=== PATIENT | female | born 1945 | race Caucasian/White ===

== ENCOUNTER 2018-11-29 04:27 | Inpatient (IN) ==
--- NOTE | 2018-11-29 05:14 | PROVIDER DOCUMENTATION ---
HPI-General Adult - General Chief Complaint: Fall Stated Complaint: fall Time Seen by Provider: 11/29/18 04:41 Source: patient (Patient is a) Allergies/Adverse Reactions: Patient Allergies Allergy/AdvReac Type Severity Reaction Status Date / Time hydrocodone Allergy Severe IN Verified 11/04/18 15:40 EXCESS>CONFUSION AND SLEEPINESS ofloxacin [From Floxin] Allergy Severe ANAPHYLAXIS Verified 11/04/18 15:40 niacin Allergy Intermediate HIVES Verified 11/04/18 15:40 caffeine Allergy Unknown Unknown Verified 11/04/18 15:40 cefixime [From Suprax] Allergy Unknown Unknown Verified 11/04/18 15:40 Ephedrine Analogues Allergy Unknown HEART Verified 11/04/18 15:40 RACING garlic Allergy Unknown NAUSEA/VOMI Verified 11/04/18 15:40 TING metoclopramide HCl * Allergy Unknown HALLUCINATIONS;"EVERYTHING'S Verified 11/04/18 15:40 [From Reglan] CRAWLING" prednisone Allergy Unknown Unknown Verified 11/04/18 15:40 promethazine HCl * Allergy Unknown HALLUCINATI Verified 11/04/18 15:40 [From Phenergan] ONS lactase [From Dairy Aid] Allergy Unknown Verified 11/04/18 15:40 methocarbamol [From Robaxin] Allergy VOMITING Verified 11/04/18 15:40 tramadol HCl * [From Ultram] AdvReac Intermediate DIZZINESS Verified 11/04/18 15:40 IF TAKING TOO MUCH Home Medications: Home Medication List Medication Instructions Recorded Confirmed Last Taken Type Fluoxetine HCl [Prozac] 40 mg PO DAILY 05/12/14 06/06/18 12/15/17 08:00 History Atorvastatin Calcium [Lipitor] 40 mg PO DAILY 12/15/17 06/06/18 12/14/17 09:00 History Estradiol 2 mg PO DAILY 12/15/17 06/06/18 12/15/17 08:00 History Glipizide [Glucotrol] 5 mg PO BID 12/15/17 06/06/18 12/14/17 21:00 History Melatonin 10 mg PO QHS 12/15/17 06/06/18 12/14/17 21:00 History Potassium Chloride 10 meq PO DAILY PRN 12/15/17 06/06/18 12/15/17 08:00 History Amoxicillin 500 mg PO BID #14 cap 12/17/17 06/06/18 Unknown Rx Levothyroxine [Synthroid] 25 microgm PO DAILY #30 tab 12/17/17 06/06/18 Unknown Rx Acyclovir 1 tab PO BID 06/06/18 06/06/18 Unknown History Alprazolam [Xanax] 1 tab PO QHS 06/06/18 06/06/18 Unknown History Hydrochlorothiazide 12.5 mg PO DAILY PRN 06/06/18 06/06/18 Unknown History Review of Systems - Adult - REVIEW OF SYSTEMS - ADULT Constitutional: reports: see HPI. denies: chills, fever Eyes: reports: no symptoms reported Ears, Nose, Mouth & Throat: reports: no symptoms reported Cardiovascular: reports: no symptoms reported Respiratory: reports: no symptoms reported Past History - Adult - PAST MEDICAL HISTORY-ADULT Review of Records: reports: Old Records Reviewed, Nursing Assessment Review, Medications Reviewed, Social history reviewed & non-contributory. Major Childhood Illnesses: reports: denies history Cardiovascular: reports: hyperlipidemia, other (Histroy of Vent Tachycarida. Stable for years.) Respiratory: reports: COPD (Quit smoking many years ago .) Gastrointestinal: reports: denies history Obstetrical/Gynecological: reports: denies history Genitourinary: reports: denies history Musculoskeletal: reports: arthritis, chronic pain, orthopedic injury Neurological: reports: CVA, stroke deficits, other (Mienier's disease) Psychiatric: reports: anxiety, depression Endocrine/Immune: reports: thyroid disorder Other Conditions: reports: denies history - PRIOR SURGERIES/PROCEDURES Surgical/Procedure History: reports: recent surgery (oral surgery), hysterectomy , tonsillectomy, orthopedic (extremity), other - IMMUNIZATION STATUS Childhood Immunizations: See Nurse Assessment Flu Vaccine: See Nurse Assessment - FAMILY HISTORY Family History: reviewed, not pertinent Physical Exam-General - CONSTITUTIONAL General Appearance: alert, other (pale appearing) - EYES Eyes: other (clear) - HEAD, EARS, NOSE, MOUTH & THROAT HENMT: moist mucous membranes - NECK Neck: supple - RESPIRATORY Respiratory: lungs clear - CARDIOVASCULAR Cardiovascular: regular rate, rhythm - GASTROINTESTINAL (ABDOMEN) Abdominal Exam: non tender, soft, other (heme positive brown stool , no active bleeding on rectal exam with RN present) - LYMPHATIC Lymphatic: no adenopathy - MUSCULOSKELETAL Back Exam: normal inspection Extremity: normal range of motion, non-tender - SKIN Integumentary: other (pale) - NEUROLOGIC Neurologic: grossly normal - PSYCHIATRIC Psych/Mental Status: anxious Progress - PLAN OF CARE/RESULTS Progress/Plan/Lab Results: Vital Signs - 8 hr 11/29/18 04:34 Pulse Rate 69 Respiratory Rate 20 Blood Pressure 155/64 O2 Sat by Pulse Oximetry 98 Orders Category Date Time Status CT HEAD/C-SPINE W/O CONTRAST [CT] Stat Exams 11/29/18 04:44 Ordered CBC WITH ELECTRONIC DIFF [HEME] Stat Lab 11/29/18 04:45 Ordered CMP [COMPREHENSIVE METABOLIC PANEL] [CHEM] Stat Lab 11/29/18 04:57 Uncollected OCCULT BLOOD SCREEN STOOL PL Stat Lab 11/29/18 04:45 Uncollected PT [PROTIME WITH INR] [COAG] Stat Lab 11/29/18 04:56 Uncollected Result Diagrams: 11/29/18 05:00 11/29/18 05:00 - CONSULTS/PCP/HOSPITALIST Notification #1 *Consult/PCP/Hospitalist*: Dr. Cody, hospitalist at [facility] Time Discussed: 06:30 Reason/Comments: admit to Dr. Perez Consult Disposition: Admit #2 Consult: Dr. Rascon, GI web solutions architect Time Discussed: 06:35 Departure - Departure Date of Disposition Decision: 11/29/18 Time of Disposition Decision: 06:47 DIAGNOSIS: GI bleeding Qualifiers: GI bleed type/associated pathology: unspecified gastrointestinal hemorrhage type Qualified Code(s): K92.2 - Gastrointestinal hemorrhage, unspecified Scalp laceration Qualifiers: Encounter type: initial encounter Qualified Code(s): S01.01XA - Laceration without foreign body of scalp, initial encounter Disposition: ADMITTED INPATIENT 09 Certified Medical Emergency: Emergent Condition: Stable Referrals and Follow-Ups: None,PCP [Primary Care Provider] - - Critical Care Note This patient required my direct & personal management of CC.: Yes Attestation - Physician/ ANGELIA Attestation Patient care was provided by Advanced Practice Provider:: No The physician spent face to face time with patient:: Yes Advanced Practice Provider documentation review:: Supervising physician onsite and consulted in the evaluation and care of this patient. The physician did have a face to face encounter with the patient.
[2018-11-29 05:21] LABS: OCCULT BLOOD 1 POSITIVE (NEGATIVE)
[2018-11-29 05:24] LABS: BASO# 0.02 X1000 (0.0-0.2); BASO% 0.3 % (0.0-0.8); EOS# 0.14 X1000 (0.0-0.7); HEMATOCRIT 25.4 % (37.0-47.0); HEMOGLOBIN 7.6 g/dL (12.0-16.0); IMM GRAN# 0.06 X1000 (0.0-0.04); IMM GRAN% 0.9 % (0.0-0.5); LYMPH# 1.98 X1000 (1.2-3.4); LYMPH% 28.5 % (20.5-51.1); MCH 25.4 PG (27-31); MCHC 29.9 g/dL (33-37); MCV 84.9 FL (81-99); MONO# 0.61 X1000 (0.11-0.59); MONO% 8.8 % (1.7-9.3); MPV 9.8 FL (7.4-10.4); NEUT# 4.14 X1000 (1.4-6.5); NEUT% 59.5 % (42.2-75.2); PLT 245 X1000 (130-400); RBC 2.99 XMIL (4.2-5.4); RDW 15.5 % (11.5-14.5); WBC 6.95 X1000 (4.8-10.8)
[2018-11-29 05:33] LABS: INR 0.91; PROTIME 12.7 Seconds (11.0-16.0)
[2018-11-29 05:38] LABS: AGAP 12; ALBUMIN 3.8 g/dL (3.5-5.0); ALKALINE PHOSPHATASE 47 U/L (32-104); BUN 16 mg/dL (8-22); CALCIUM 8.8 mg/dL (8.8-10.2); CHLORIDE 105 mmol/L (98-107); COSMO 286; CREATININE 0.8 mg/dL (0.5-0.9); ESTIMATED GFR > 60; GLUCOSE 196 mg/dL (70-104); GOT 24 U/L (10-30); GPT 22 U/L (10-36); POTASSIUM 4.6 mmol/L (3.5-5.1); SODIUM 140 mmol/L (136-145); TCO2 23 mmol/L (25-35); TOTAL PROTEIN 6.1 g/dL (6.3-8.3)
[2018-11-29] MEDS ORDERED: PROTONIX IV ONE (06:06)
[2018-11-29] MEDS ORDERED: SODIUM CHLORIDE 0.9% INJ ONE ×2 (06:06→06:39)
--- NOTE | 2018-11-29 06:21 | Diag Imaging Result Doc PS360 ---
EXAM : CT HEAD/C-SPINE W/O CONTRAST HISTORY: fall, head injury TECHNIQUE: 1. CT head without contrast 2. CT cervical spine without contrast COMPARISON: Head compared to 11/04/2018 FINDINGS: Head: No parenchymal hemorrhage. No epidural or subdural hematoma. No subarachnoid hemorrhage. Mild atrophy. No mass identified on this noncontrasted exam. No hydrocephalus. No skull fracture. Cervical spine: There is mild scoliosis. There has been fusion from C3-4 to C6. Small degenerative bone spurs. Prominent bone spur posteriorly at C5-6 causing moderate to prominent bony narrowing of the canal. No precervical soft tissue swelling. No subluxation. No fracture. IMPRESSION: Head: No hemorrhage. No injury. Cervical spine: No acute fracture. A preliminary report was given at 6:05 AM This exam was performed using automated exposure control, adjustment of mA or kV according to patient size, and/or use of iterative reconstruction technique. Electronically signed by Rory Guzman 11/29/2018 6:19 AM
[2018-11-29] MEDS ORDERED: ZOFRAN IV PRN (06:33)
[2018-11-29] MEDS ORDERED: XYLOCAINE 1%/EPI 1:100,000 ONE (06:45)
[2018-11-29 09:01] LABS: HEMATOCRIT 25.3 % (37.0-47.0); HEMOGLOBIN 7.5 g/dL (12.0-16.0)
--- NOTE | 2018-11-29 09:47 | HISTORY AND PHYSICAL ---
CHIEF COMPLAINT: Fall. HISTORY OF PRESENT ILLNESS: This is a 73-year-old female with a history of COPD, diabetes, hypothyroid, Mnire's Disease, who presented to the emergency room via EMS after having a fall from a standing position and receiving a posterior scalp laceration. The patient states she had taken Ambien the night before. This is not a new medication. She was awakened hearing a noise. She thought she heard cats at the door, although she does not have a cat, she was concerned about them being out in the weather, so she opened the door. According to EMS report, she felt dizzy and confused and fell. At the time of my exam, the patient does not remember the event. She states that she remembers hearing the cats and then woke up with EMS at her side. There is no documentation of any incontinence of stool or urine or any vomitus. The patient states that she has had routine colonoscopies with Dr. Parson. Her last 1 was a few years ago. He told her "you made the 10-year bhumi, you are through having colonoscopies," although she is unable to tell me what the 10 year bhumi is from. She does state that she has chronic constipation with internal hemorrhoids. About 3 months ago, she used suppositories routinely for about 2 weeks, since she has used them as needed. During this last 3 months she states she has had black tarry stools mixed with normal stool. She denies any red stools or any prior episodes. PAST MEDICAL HISTORY: 1. History of ventricular tachycardia. 2. Mnire's disease. 3. Chronic obstructive pulmonary disease. 4. Hypertension. 5. Dyslipidemia. 6. Diabetes mellitus. 7. Hypothyroid. 8. General anxiety disorder. 9. Chronic constipation. 10. Internal hemorrhoids. PAST SURGICAL HISTORY: 1. Hysterectomy. 2. Ear surgery. 3. Left shoulder surgery. 4. Left knee surgery. 5. Sinus surgery. ALLERGIES: 1. Hydrocodone. 2. Niacin. 3. Caffeine. 4. Ephedrine. 5. Garlic. 6. Reglan. 7. Prednisone. 8. Phenergan. 9. Lactose. 10. Robaxin. 11. Ultram. 12. Suprax. HOME MEDICATIONS: A list will be obtained by the nursing staff and once verified, will review and restart as appropriate. REVIEW OF SYSTEMS: Discussed with the patient with pertinent positives stated in the HPI. She denied any chest pain, palpitations, any shortness of breath, cough, fever, chills, any night sweats, any recent weight loss or weight gain, any nausea, vomiting, diarrhea, constipation, black or bloody vomitus, any bloody stools, hematuria, dysuria, frequency, urgency. PHYSICAL EXAMINATION: GENERAL: This is a 73-year-old female who is lying flat in the bed on the medical-surgical floor in no distress. VITAL SIGNS: Blood pressure is 154/61 with a heart rate of 69, respirations are 16, temperature is 98.5 degrees oral with room air saturations 98%. EYES: Pupils are equal, round, react to light. EOMs are intact. Sclerae are anicteric. HEENT: Head is normocephalic, atraumatic. Mucous membranes are moist. NECK: Supple with trachea midline. CARDIOVASCULAR: Regular rate and rhythm. S1 and S2 are appreciated. She has no lower extremity edema. No murmur. Calves are nontender bilateral with peripheral pulses palpable x4 extremities. PULMONARY: Breath sounds are clear with no increased work of breathing noted. Chest rises and falls symmetric with respiration. Chest wall is nontender to palpation. GASTROINTESTINAL: Soft, nontender, nondistended with bowel sounds in all 4 quadrants. GENITOURINARY: She has no CVA or suprapubic tenderness. NEUROLOGIC: She is alert and oriented x3. SKIN: Warm and dry. LABORATORY DATA: WBC 6.9 with hemoglobin 7.6 and hematocrit of 25.4, platelets of 245,000. Sodium is 140, potassium 4.6, BUN 16, creatinine 0.8, glucose of 196. Stool for occult blood was positive. INR 0.91. ASSESSMENT AND PLAN: 1. Gastrointestinal bleed. In review of the patient's labs, she had a hemoglobin and hematocrit of 10 and 32 on 11/04/2018. She now has a hemoglobin and hematocrit of 7.6 and 25.4. We will occult stools. We will consult Dr. Oliver, Gastroenterology, trend hemoglobin and hematocrit. Protonix q.12 hours. At present, she will be NPO until evaluated by Dr. Oliver. 2. Right occipital scalp laceration. Incision is clear. Eloy are intact. 3. History of diabetes mellitus. hemoglobin A1c. fingerstick blood sugars with sliding scale insulin. 4. Hypothyroidism. check a TSH, identify her medication and continue. 5. Chronic obstructive pulmonary disease. continue home medications. 6. Hypertension. Continue home medications. 7. History of a ventricular tachycardia, aware. 8. General anxiety disorder. Aware. 9. For deep venous thrombosis prophylaxis, will use sequential compression devices. For gastrointestinal prophylaxis, as stated above, Protonix. Further treatments pending hospital course. Dictated by DEVAUGHN Clancy for Greg Stockton MD Addendum: Patient seen and examined by myself. Agree with DEVAUGHN note. It reflects my assessment and plan. Patient is admitted to hospital for GI bleeding. 1 unit of blood will be given. GI will be consulted for possible EGD and she will be NPO after midnight. Will check HH q6hrs. cc: DEVAUGHN Clancy MD [facility]
--- NOTE | 2018-11-29 12:09 | GASTROENTEROLOGY CONSULTATION ---
DATE: 11/29/2018 ATTENDING PHYSICIAN: Dr. Wolff. PRIMARY CARE DOCTOR: None. REASON FOR CONSULTATION: Gastrointestinal bleed. HISTORY OF PRESENT ILLNESS: Ms. Capone is a 73-year-old who was admitted on 11/29/2018 after having a fall from standing position and receiving a posterior scalp laceration. The patient has history of Mnire's disease. According to her, she felt dizzy and confused and fell. During the admission, she had blood work which showed evidence of anemia with hemoglobin of 7.5 g. On questioning, the patient did complain of noticing black stools going on for the last 3 months. She has had prior colonoscopy with Dr. Parson many years ago and she was told that she has hemorrhoids. Gastroenterology is consulted for further management. PAST MEDICAL HISTORY: 1. History of ventricular tachycardia. 2. Mnire's disease. 3. COPD. 4. Hypertension. 5. Hyperlipidemia. 6. Diabetes mellitus. 7. Hypothyroidism. 8. Generalized anxiety disorder. 9. Chronic constipation. 10. Internal hemorrhoids. PAST SURGICAL HISTORY: 1. Hysterectomy. 2. Ear surgery. 3. Left shoulder surgery. 4. Left knee surgery. 5. Sinus surgery. ALLERGIES: 1. Hydrocodone. 2. Niacin. 3. Caffeine. 4. Ephedrine. 5. Garlic. 6. Reglan. 7. Prednisone. 8. Phenergan 9. Lactose. 10. Robaxin. 11. Ultram. 12. Suprax. MEDICATIONS IN HOSPITAL: Include 1. Humalog subcu. 2. Morphine. 3. Zofran. 4. Protonix b.i.d. She is currently NPO. MEDICATIONS AT HOME: Include 1. Fluoxetine. 2. Atorvastatin. 3. Xanax. 4. Lexapro. 5. Estradiol. 6. Zolpidem. 7. Glipizide. 8. Levothyroxine. REVIEW OF SYSTEMS: Denies any fevers, rigors, chills, chest pain, shortness of breath. She does complain of feeling weak. She denies any vomiting blood. She did complain of dark stools going off and on for the last 3 months. She also has history of hemorrhoids and chronic constipation. She does have history of some arthritis. She denies any new neurological complaints although she did feel confused and weak before a fall she sustained at home. PHYSICAL EXAMINATION: Vital signs: Temperature 98.5 degrees, pulse of 69, respiratory rate 16, blood pressure 150/61, saturating 90% on room air. Body weight of 179 pounds 9 ounces. BMI 28.1. General: Moderately built, moderate nourished, lying in bed, in no acute distress. HEENT: Pale conjunctivae. No icterus. Pupils equal, reactive to light. Neck: Supple. Abdomen: Soft, nontender, nondistended. No guarding or rebound. Extremities: No cyanosis, clubbing. She has some lower extremity edema. Neurologic: She is alert, awake, oriented. LABORATORY DATA: Hemoglobin and hematocrit is 7.5 and 25.3, white count of 6.9, platelet count of 245,000. Sodium 140, potassium 4.6, chloride 105, bicarb of 23, anion gap 12, BUN of 16, creatinine 0.8, glucose of 196, calcium 8.8. Hemoglobin A1c is 8. Total bilirubin is 0.2, AST 24, ALT 22, alkaline phosphatase 47, total protein is 6, albumin of 3.8. TSH 4.7. Stool occult was positive. Her head and cervical spine CT showed mild atrophy and mild scoliosis, and fusion from C3 through C4-C6, prominent bone spur posteriorly at C5-C6. No hemorrhage and no injury was noted. No acute fractures noted. She had history of prior colonoscopy in 2012 with colon biopsies that showed evidence of patchy chronic inflammation, consistent with lymphocytic colitis. The colonoscopy showed evidence of diverticulosis, otherwise normal. Last chest abdomen CT was done on 10/13/2017 which showed small parapelvic cyst in the left kidney. There is no evidence of free fluid. There is stool in the distal colon and rectum. IMPRESSION AND PLAN: 1. Gastrointestinal bleeding in the form of melena. 2. Anemia. 3. Multiple medication allergies. 4. Diverticulosis. 5. Lymphocytic colitis. 6. Chronic constipation. 7. History of hemorrhoids. RECOMMENDATIONS: We will keep the patient on Protonix b.i.d. We will start her on Carafate 1 g 6 hours. We will type and cross, transfuse to keep hematocrit more than 23%. We will schedule for EGD tomorrow with Dr. Pablo. The risks benefits, indications, and alternatives were discussed with the patient. All questions answered. If the esophagogastroduodenoscopy is negative, the patient may need a colonoscopy. The patient does have diverticulosis in the colon. She will avoid excessive corn, nuts, and seeds in diet. History of constipation. We will start on MiraLAX once daily for constipation. She has a high hemoglobin A1c. She will need to keep good control of diabetes Above plans discussed with the patient. All questions answered. Please call us with any further questions. cc: MD Greg Alicea MD
[2018-11-29] MEDS: HUMALOG SUBQ SCH ×2 (13:15→22:59)
[2018-11-29] MEDS: CARAFATE LIQUID PO SCH ×2 (13:16→22:53)
[2018-11-29 15:27] LABS: HEMATOCRIT 25.1 % (37.0-47.0); HEMOGLOBIN 7.3 g/dL (12.0-16.0)
[2018-11-29] MEDS: PROTONIX IV SCH (17:56)
[2018-11-29 21:30] LABS: URINE SOURCE CLEAN CATCH
[2018-11-29 21:48] LABS: BILIRUBIN URINE NEGATIVE (NEGATIVE); BLOOD URINE NEGATIVE (NEGATIVE); COLOR STRAW; GLUCOSE URINE NEGATIVE (NEGATIVE); KETONE URINE NEGATIVE (NEGATIVE); LEUKOCYTES URINE NEGATIVE (NEGATIVE); NITRITE URINE NEGATIVE (NEGATIVE); PROTEIN URINE NEGATIVE (NEGATIVE); TURBIDITY URINE CLEAR (CLEAR); UR EPITHELIAL CELLS <10 /HPF (<10); URINE BACTERIA NEGATIVE /HPF; URINE RBC <10 /HPF (<10); URINE WBC <10 /HPF (<10); UROBILINOGEN URINE NORMAL (NORMAL)
[2018-11-29] MEDS: ICAR-C PO SCH (22:54)
[2018-11-30] MEDS: MORPHINE IV PRN (00:20)
[2018-11-30] MEDS ORDERED: DIPRIVAN 1% ONE (06:27)
[2018-11-30 06:48] LABS: HEMATOCRIT 23.8 % (37.0-47.0); HEMOGLOBIN 6.9 g/dL (12.0-16.0); MCH 25.6 PG (27-31); MCV 88.1 FL (81-99); MPV 9.5 FL (7.4-10.4); RBC 2.7 XMIL (4.2-5.4); RDW 15.6 % (11.5-14.5); WBC 5.53 X1000 (4.8-10.8)
[2018-11-30] MEDS: HUMALOG SUBQ SCH ×3 (06:52→16:55)
[2018-11-30] MEDS: PROTONIX IV SCH ×2 (06:52→19:13)
[2018-11-30] MEDS: CARAFATE LIQUID PO SCH ×4 (06:55→19:13)
[2018-11-30 07:13] LABS: AGAP 13; BUN 9 mg/dL (8-22); CALCIUM 8.5 mg/dL (8.8-10.2); CHLORIDE 107 mmol/L (98-107); COSMO 283; CREATININE 0.9 mg/dL (0.5-0.9); ESTIMATED GFR > 60; GLUCOSE 179 mg/dL (70-104); POTASSIUM 4.3 mmol/L (3.5-5.1); SODIUM 140 mmol/L (136-145); TCO2 20 mmol/L (25-35)
--- NOTE | 2018-11-30 09:40 | PROGRESS NOTE ---
DATE: 11/30/2018 SUBJECTIVE: This morning Ms. Capone refers to be doing fairly okay. She denies any more rectal bleed, melena stool, and no dizziness. OBJECTIVE: Vital signs: Blood pressure is 155/44, pulse 81, respirations 16, and temperature 97.9 degrees. General: Ms. Capone is a 73-year-old female. She is in bed in no distress. Mucosa is slightly pale. Anicteric. Acyanotic. Neck: Supple. Chest: Clear to auscultation. No crepitations. No rhonchi. Cardiovascular: Regular rate and rhythm. Abdomen: Soft. Extremities: No pedal edema. UNIX ANALYST: Patient was awake, alert, and oriented to person. Disoriented to place and time. LABORATORY DATA: WBC is 5.53, hemoglobin is 6.9, platelet count of 253,000. Chemistry is also reviewed and is completely normal. CURRENT MEDICATIONS: Have all been reviewed. ASSESSMENT: 1. Symptomatic anemia. The patient's hemoglobin and hematocrit has gone down to 6.9. We are going to group and crossmatch her, and give her 2 units of PRBC's. 2. Anemia secondary to GI bleed. The patient is pending a GI evaluation today. We are going to continue with the PPI. 3. Right occipital scalp laceration status post staple application. 4. History of hypothyroidism. We will continue with the thyroid supplements. 5. Hypertension is controlled. 6. Diabetes mellitus. Presenting A1c is 8.0. Patient was on oral hypoglycemic agent at home. We will control the glucose during the hospital course with insulin regimen. 7. History of lymphocytic colitis on previous colonoscopy noted. In general, I think Ms. Capone is fairly stable. She seems to have suffered a syncopal episode because of symptomatic anemia. So far, her telemonitor strips just show sinus rhythm, but we will do a formal EKG on her to rule out any other possible etiology for this blacking out. A CT scan of the head and cervical spine was unremarkable. Her hemoglobin and hematocrit continues to drop, so we are going to group and crossmatch her. She is also pending EGD this morning and then go from there. cc: MD Greg Villanueva MD [facility]
--- NOTE | 2018-11-30 10:40 | OPERATIVE NOTE ---
PROCEDURE DATE: 11/30/2018 PROCEDURE PERFORMED: Upper gastrointestinal endoscopy. PROVIDER: Boubacar Pablo MD. INDICATIONS: GI bleed, anemia. MEDICATIONS: Monitored anesthesia care. DESCRIPTION OF PROCEDURE: Prior to procedure, history and physical was performed. The patient's medication and allergies were reviewed. The patient's tolerance to previous anesthesia was also reviewed. The risks and benefits of the procedure and sedation, options, and risks were discussed with the patient. All questions were answered. Informed consent was obtained. After reviewing the risks and benefits, the patient was deemed in satisfactory condition to undergo the procedure. The endoscope was passed under direct visualization. Throughout the procedure, the patient's blood pressure, pulse, and oxygen saturation were monitored continuously. The endoscope was introduced in the mouth and advanced to the second part of the duodenum. The upper GI endoscopy was accomplished without difficulty. The patient tolerated the procedure well. COMPLICATIONS: No immediate complications. ESTIMATED BLOOD LOSS: None. FINDINGS: There was a large esophageal diverticulum found in the distal esophagus. A 5 cm hiatal hernia was found. The Z-line was located at 35 cm from the incisors and top of the gastric folds, 40 cm from the incisors. The stomach was otherwise normal. The duodenal bulb and second portion of the duodenum were also normal. No etiology of patient's anemia was found on upper GI endoscopy. IMPRESSION: 1. Esophageal diverticulum. 2. Hiatal hernia. RECOMMENDATIONS: Start clear liquid diet. Prep with 4 L of GoLYTELY this evening. NPO after midnight. Diagnostic colonoscopy tomorrow to evaluate for lower GI bleeding. We will follow with you. Please call with any questions or concerns. cc: Greg Stockton MD
[2018-11-30] MEDS ORDERED: NS 500 ML ONE (12:43)
[2018-11-30 15:26] LABS: URINE SOURCE CLEAN CATCH
[2018-11-30 15:29] LABS: BILIRUBIN URINE NEGATIVE (NEGATIVE); BLOOD URINE NEGATIVE (NEGATIVE); COLOR YELLOW; GLUCOSE URINE 150 mg/dL (NEGATIVE); KETONE URINE TRACE mg/dL (NEGATIVE); LEUKOCYTES URINE NEGATIVE (NEGATIVE); NITRITE URINE NEGATIVE (NEGATIVE); PH URINE 5.5; PROTEIN URINE NEGATIVE (NEGATIVE); SP GRAVITY URINE 1.016; TURBIDITY URINE CLEAR (CLEAR); UROBILINOGEN URINE NORMAL (NORMAL)
[2018-11-30 15:32] LABS: UR EPITHELIAL CELLS <10 /HPF (<10); URINE BACTERIA NEGATIVE /HPF; URINE RBC <10 /HPF (<10); URINE WBC <10 /HPF (<10)
[2018-11-30] MEDS: ICAR-C PO SCH ×2 (16:54→22:36)
[2018-11-30] MEDS: CENTRUM SILVER PO SCH (16:54)
[2018-11-30] MEDS: MIRALAX PO SCH (16:54)
[2018-11-30] MEDS ORDERED: GOLYTELY PO ONE (18:00)
[2018-11-30] MEDS: SODIUM CHLORIDE 0.9% INJ PRN (19:13)
[2018-12-01] MEDS: CARAFATE LIQUID PO SCH ×3 (03:08→13:49)
[2018-12-01] MEDS: HUMALOG SUBQ SCH ×3 (03:09→12:14)
[2018-12-01] MEDS: MORPHINE IV PRN (03:26)
[2018-12-01] MEDS: PROTONIX IV SCH (06:28)
[2018-12-01] MEDS: SODIUM CHLORIDE 0.9% INJ PRN (06:28)
[2018-12-01 07:31] LABS: BASO# 0.02 X1000 (0.0-0.2); BASO% 0.3 % (0.0-0.8); EOS# 0.18 X1000 (0.0-0.7); EOS% 3.1 % (0.0-10.0); HEMATOCRIT 29.6 % (37.0-47.0); HEMOGLOBIN 9.2 g/dL (12.0-16.0); LYMPH% 31.4 % (20.5-51.1); MCH 26.1 PG (27-31); MCHC 31.1 g/dL (33-37); MCV 84.1 FL (81-99); MONO% 8.7 % (1.7-9.3); MPV 9.6 FL (7.4-10.4); NEUT# 3.23 X1000 (1.4-6.5); NEUT% 56.5 % (42.2-75.2); PLT 243 X1000 (130-400); RBC 3.52 XMIL (4.2-5.4); RDW 15.1 % (11.5-14.5); WBC 5.73 X1000 (4.8-10.8)
[2018-12-01] MEDS: ICAR-C PO SCH (09:33)
[2018-12-01] MEDS: MIRALAX PO SCH (09:33)
[2018-12-01] MEDS: CENTRUM SILVER PO SCH (09:33)
[2018-12-01] MEDS ORDERED: DIPRIVAN 1% ONE ×2 (09:47→10:35)
--- NOTE | 2018-12-01 10:58 | PROGRESS NOTE ---
DATE: 12/01/2018 SUBJECTIVE: This morning Ms. Capone refers to be doing fairly okay. She denies any new complaints. She declined to drink her GoLYTELY yesterday; however, this morning she has finished drinking it all. OBJECTIVE: Vital signs: Current blood pressure is 152/61, pulse is 66, respiration is 18, temperature is 98.8 degrees. General exam: Ms. Capone is a 73-year-old female. She was sitting up in a chair. No distress. HEENT: Mucosa is pink and moist. Anicteric. Acyanotic. Neck: Supple. Chest: Clear to auscultation. No crepitations or rhonchi. Cardiovascular: Regular rate and rhythm. GI: Abdomen is soft, is nontender. Bowel sounds present. There is no hepatosplenomegaly. Extremities: No pedal edema. Distal pulses are present. REGULATORY SCIENTIST: Patient is awake, alert, and oriented. There is no focal neurological deficit. LABORATORY DATA: Hemoglobin is up to 9.2. The patient has only got 1 unit of PRBC transfused. ASSESSMENT: 1. Symptomatic anemia. On presentation, patient is status post 1 packed red blood cell transfusion. Hemoglobin/hematocrit has increased. 2. Anemia secondary to gastrointestinal bleed. Esophagogastroduodenoscopy yesterday was fairly unremarkable. There is a plan for a colonoscopy today. 3. Right occipital scalp laceration, status post staple application. 4. Hypothyroidism. Will continue with the thyroid supplementation. 5. Hypertension is controlled. 6. Diabetes mellitus with presenting A1c of 8.0. The patient is currently on insulin regimen. 7. History of lymphocytic colitis on previous colonoscopy. PLAN: So, in general, I think Ms. Capone is doing a lot better. We are going to continue with the current PPI and Carafate. We are awaiting a colonoscopy today. Hopefully after the colonoscopy, Ms. Capone can be discharged back to her independent living. Hemoglobin has improved with 1 PRBC transfusion, and patient denies any more rectal bleed. cc: MD Greg Villanueva MD
--- NOTE | 2018-12-01 11:05 | OPERATIVE NOTE ---
PROCEDURE DATE: 12/01/2018 PROCEDURE PERFORMED: Colonoscopy. PROVIDER: Boubacar Pablo MD. INDICATIONS: GI bleed, anemia. MEDICATIONS: Monitored anesthesia care. DESCRIPTION OF PROCEDURE: Prior to the procedure, history and physical was performed. The patient's medication allergies were reviewed. The patient tolerance to previous anesthesia was also reviewed. The risks and benefits of the procedure and sedation options and risks were discussed with the patient. All questions were answered. Informed consent was obtained. After reviewing the risks and benefits, the patient was deemed in satisfactory condition to undergo the procedure. The colonoscope was advanced under direct visualization. Throughout the procedure, the patient's blood pressure, pulse, and oxygen saturations were monitored continuously. The colonoscope was introduced through the anus and advanced to the terminal ileum, identified by the appendiceal orifice and the ileocecal valve. The colonoscopy was accomplished without difficulty. The quality of the prep was adequate. The patient tolerated the procedure well. COMPLICATIONS: No immediate complications. ESTIMATED BLOOD LOSS: None. FINDINGS: There was moderate diverticulosis in the left side of the colon. External hemorrhoids were found on digital rectal exam. The terminal ileum and remaining colon were normal. IMPRESSION: 1. Left-sided diverticulosis. 2. External hemorrhoids. RECOMMENDATIONS: Advance diet as tolerated, high-fiber diet. Iron replacement therapy. Recommend outpatient capsule endoscopy to evaluate small bowel for etiology of GI bleed and anemia. The patient is okay to be discharged from a GI standpoint with followup in 2 to 4 weeks. Please call with any questions or concerns. cc: Greg Stockton MD
[2018-12-01 12:12] VITALS: BP 155/138
[2018-12-01] MEDS ORDERED: PROTONIX PO SCH (19:00)
--- NOTE | 2018-12-02 07:20 | DISCHARGE SUMMARY ---
ADMISSION DATE: 11/30/2018 DISCHARGE DATE: 12/01/2018 DISPOSITION: Back to the independent living. FOLLOW-UP: Dr. Pablo. CONSULTATION DURING ADMISSION: GI was consulted. Patient was seen by Dr. Pablo. INVASIVE PROCEDURES DONE DURING ADMISSION: 1. EGD was done which showed esophageal diverticulum and hiatal hernia. 2. Colonoscopy showed left-sided diverticulosis and external hemorrhoids. IMAGING STUDIES OF SIGNIFICANCE: A CT scan of the head and cervical spine was unremarkable. ADMISSION DIAGNOSES: 1. GI bleed. 2. Right occipital scalp laceration. 3. Hypothyroidism. 4. Chronic obstructive pulmonary disease. 5. History of ventricular tachycardia. DIAGNOSES AT TIME OF DISCHARGE: 1. Symptomatic anemia on presentation. Patient was given 1 unit of PRBC. Hemoglobin and hematocrit has normalized. 2. Anemia secondary to GI bleed. So far, the EGD and colonoscopy were fairly unremarkable. There is a plan for outpatient video capsule endoscopy. 3. Hypothyroidism. We will continue with the supplements. 4. Hypertension controlled. 5. Diabetes mellitus with presenting A1c of 8.0. 6. History of lymphocytic colitis on previous colonoscopy. 7. Diverticulosis with external hemorrhoids on colonoscopy, presumably the cause of the rectal bleed. DISCHARGE MEDICATIONS: 1. Fluoxetine 40 mg daily. 2. Atorvastatin 40 mg daily. 3. Alprazolam 0.5 mg daily. 4. Lexapro 50 mg p.o. daily. 5. Zolpidem 10 mg p.o. at bedtime. 6. Glucotrol 5 to 10 mg p.o. with breakfast daily. 7. Levothyroxine 25 mcg p.o. daily. 8. Carafate 1 g p.o. q.6. 9. Iron. 10. MiraLAX. 11. Multivitamin. PRESENTING COMPLAINT: Fall. HISTORY OF PRESENTING COMPLAINT: Ms. Capone is a 73-year-old female who presented to the emergency department because of fall sustaining a mild laceration to the back. This was sutured on presentation. Patient also did complain of some dizziness. Initial workup revealed her hemoglobin was 7.6. This was trended, and it showed a continuous decline to 6.9. Her Hemoccult was positive so GI was consulted, and patient was seen by Dr. Pablo. HOSPITAL COURSE: Ms Capone was admitted to the medical floor and adequately hydrated. Hemoglobin was trended. This was found to be steady decline to about 6.9. She was group and crossmatched, and was given 1 unit of PRBC. Hemoglobin improved to above 9. A colonoscopy and EGD were all done. Please refer to the details of the findings in the chart. This morning after colonoscopy, Ms. Capone refers to be doing a lot better. She is tolerating her diet and has not had any more rectal bleed. She feels stronger and asymptomatic so she is going to be discharged home in stable condition. She will follow up with Dr. Pablo for possible video capsule endoscopy arrangement on outpatient basis. All of the discharge instructions have been discussed with Ms. Capone, and she voiced understanding. cc: MD Greg Villanueva MD Michael Kelso, MD
== END 2018-12-01 14:58 | disposition home or self-care (01) | DRG 393 ==
LOC: P.ED 04:27 → 4N 04:27 → SUATTDRO 07:01 → 4N 11-30 01:34
PROVIDERS: ADMIT Internal Medicine; ATTEND Internal Medicine
CPT/HCPCS: 36430; 70450; 72125; 80048; 80053; 81001; 82270; 82948; 83036; 84443; 85014; 85018; 85025; 85027; 85610; 86850; 86900; 86901; 86920; 94760; 96374; 99285; A9270; C9113; J1815; J2270; J7040; P9016; S0164; XXXXX

== ENCOUNTER 2018-12-31 15:28 | Observation (INO) ==
[2018-12-31 17:32] LABS: BASO# 0.03 X1000 (0.0-0.2); BASO% 0.4 % (0.0-0.8); EOS# 0.09 X1000 (0.0-0.7); EOS% 1.2 % (0.0-10.0); HEMATOCRIT 34.1 % (37.0-47.0); HEMOGLOBIN 10.8 g/dL (12.0-16.0); IMM GRAN# 0.02 X1000 (0.0-0.04); IMM GRAN% 0.3 % (0.0-0.5); LYMPH# 1.74 X1000 (1.2-3.4); MCH 27.4 PG (27-31); MCHC 31.7 g/dL (33-37); MCV 86.5 FL (81-99); MONO# 0.48 X1000 (0.11-0.59); MONO% 6.3 % (1.7-9.3); MPV 9.3 FL (7.4-10.4); NEUT# 5.22 X1000 (1.4-6.5); NEUT% 68.8 % (42.2-75.2); PLT 229 X1000 (130-400); RBC 3.94 XMIL (4.2-5.4); RDW 20.1 % (11.5-14.5); WBC 7.58 X1000 (4.8-10.8)
[2018-12-31] MEDS ORDERED: ATIVAN IV ONE (17:37)
[2018-12-31 17:39] LABS: INR 0.96; PROTIME 13.5 Seconds (11.0-16.0)
[2018-12-31 17:40] LABS: PTT 23.2 Seconds (22.3-41.8)
[2018-12-31 17:52] LABS: AGAP 16; ALB/GLOB RATIO 1.4; ALBUMIN 3.7 g/dL (3.5-5.0); ALKALINE PHOSPHATASE 48 U/L (32-104); BUN 14 mg/dL (8-22); CALCIUM 9.2 mg/dL (8.8-10.2); CHLORIDE 102 mmol/L (98-107); COSMO 283; CREATININE 0.8 mg/dL (0.5-0.9); ESTIMATED GFR > 60; GLUCOSE 184 mg/dL (70-104); GOT 53 U/L (10-30); GPT 39 U/L (10-36); POTASSIUM 4.5 mmol/L (3.5-5.1); SODIUM 139 mmol/L (136-145); TCO2 21 mmol/L (25-35); TOTAL BILIRUBIN 0.22 mg/dL (0.20-1.00); TOTAL PROTEIN 6.3 g/dL (6.3-8.3)
--- NOTE | 2018-12-31 18:34 | PROVIDER DOCUMENTATION ---
This chart was entered by Marylu Vang Scribe, acting as scribe for Vipul Lopez MD. HPI-Abdominal Pain/GI Problem - General Source: patient, EMS - History of Present Illness-ABD Nature of Presenting Problems: 73 yowf presents to the ed via ems with c/o 3 days od black tarry stool and dizziness for 1 hour. pt called her pcp and was told to call ems to come to ed. pt denies any pain o exam Quality of Pain: reports: none Severity in ED: reports: mild (black stool) Onset/Duration: reports: 3 days ago Timing: reports: still present, intermittent Activities at Onset: reports: light activity Exposure to sick contacts?: No Modifying Factors: improves with: nothing Associated Symptoms: reports: dizziness, other (black tarry stool). denies: back/neck pain, chest pain, diarrhea, fever/chills, nausea, shortness of breath, vomiting, weakness Last BM: this afternoon Dark Stools Present?: reports: black, tarry # of Diarrhea Episodes: 0 Rectal Pain: reports: none # of Vomiting Episodes: 0 Emesis Description: reports: none Bruising or Bleeding Gums?: No Similar Symptoms Previously?: Yes (had full gi work up in past) Recently seen or treated by another doctor?: No (called dr and sent to ed but has not seen) <Vipul Lopez - Last Filed: 12/31/18 18:34> <Estela Cesar - Last Filed: 12/31/18 20:46> - General Chief Complaint: GI Bleed Stated Complaint: dizzy x 1 hr Time Seen by Provider: 12/31/18 15:43 Allergies/Adverse Reactions: Patient Allergies Allergy/AdvReac Type Severity Reaction Status Date / Time hydrocodone Allergy Severe IN Verified 12/31/18 16:32 EXCESS>CONFUSION AND SLEEPINESS ofloxacin [From Floxin] Allergy Severe ANAPHYLAXIS Verified 12/31/18 16:32 niacin Allergy Intermediate HIVES Verified 12/31/18 16:32 caffeine Allergy Unknown Unknown Verified 12/31/18 16:32 cefixime [From Suprax] Allergy Unknown Unknown Verified 12/31/18 16:32 Ephedrine Analogues Allergy Unknown HEART Verified 12/31/18 16:32 RACING garlic Allergy Unknown NAUSEA/VOMI Verified 12/31/18 16:32 TING metoclopramide HCl * Allergy Unknown HALLUCINATIONS;"EVERYTHING'S Verified 12/31/18 16:32 [From Reglan] CRAWLING" prednisone Allergy Unknown Unknown Verified 12/31/18 16:32 promethazine HCl * Allergy Unknown HALLUCINATI Verified 12/31/18 16:32 [From Phenergan] ONS lactase [From Dairy Aid] Allergy Unknown Verified 12/31/18 16:32 methocarbamol [From Robaxin] Allergy VOMITING Verified 12/31/18 16:32 temazepam AdvReac Severe Nightmares Verified 12/31/18 16:32 tramadol HCl * [From Ultram] AdvReac Intermediate DIZZINESS Verified 12/31/18 16:32 IF TAKING TOO MUCH Home Medications: Home Medication List Medication Instructions Recorded Confirmed Last Taken Type Fluoxetine HCl [Prozac] 40 mg PO DAILY@1200 05/12/14 12/31/18 11/28/18 12:00 History Atorvastatin Calcium [Lipitor] 40 mg PO DAILY@1200 12/15/17 12/31/18 11/28/18 12:00 History Alprazolam [Xanax] 1 tab PO DAILY PRN 06/06/18 12/31/18 11/28/18 14:00 History Escitalopram Oxalate [Lexapro] 15 mg PO DAILY@1200 11/29/18 12/31/18 11/28/18 12:00 History Estradiol 2 mg PO DAILY@1200 11/29/18 12/31/18 11/28/18 12:00 History Glipizide E.r. [Glucotrol Xl] 5 - 10 mg PO WBREAKFAST 11/29/18 12/31/18 11/28/18 08:00 History 5mg Levothyroxine [Synthroid] 25 microgm PO DAILY@1200 11/29/18 12/31/18 11/28/18 12:00 History Iron Carbonyl/Ascorbic Acid 1 ea PO BID #120 tab 12/01/18 12/31/18 Unknown Rx [Icar-C] Multivitamins/Minerals [Centrum 1 ea PO DAILY #120 tab 12/01/18 12/31/18 Unknown Rx Silver] Sucralfate [Carafate Liquid] 1 gm PO Q6H #1 udc 05/01/19 05/31/19 Unknown Rx Polyethylene Glycol 3350 [Miralax] 17 gm PO DAILY PRN PRN 12/31/18 12/31/18 Unknown History Review of Systems - Adult - REVIEW OF SYSTEMS - ADULT Constitutional: denies: chills, fever Eyes: reports: no symptoms reported Ears, Nose, Mouth & Throat: reports: no symptoms reported Cardiovascular: denies: chest pain, palpitations Respiratory: denies: shortness of breath, wheezing Gastrointestinal: reports: see HPI, rectal bleeding. denies: abdominal pain, diarrhea, nausea, vomiting Genitourinary: reports: no symptoms reported Musculoskeletal: reports: no symptoms reported Integumentary: reports: no symptoms reported Neurological: reports: see HPI, dizziness/vertigo. denies: headache/migraines, slurred speech, syncope, tremors Psychiatric: reports: no symptoms reported Endocrine: reports: no symptoms reported Hematologic/Lymphatic: reports: no symptoms reported Allergic/Immunologic: reports: no symptoms reported All Other Systems: Reviewed and Negative <Vipul Lopez - Last Filed: 12/31/18 18:34> Past History - Adult - PAST MEDICAL HISTORY-ADULT Review of Records: reports: Nursing Assessment Review, Medications Reviewed Major Childhood Illnesses: reports: denies history Cardiovascular: reports: hyperlipidemia, other (Histroy of Vent Tachycarida. Stable for years.) Respiratory: reports: COPD (Quit smoking many years ago .) Gastrointestinal: reports: denies history Obstetrical/Gynecological: reports: denies history Genitourinary: reports: denies history Musculoskeletal: reports: arthritis, chronic pain, orthopedic injury Neurological: reports: CVA, stroke deficits, other (Mienier's disease) Psychiatric: reports: anxiety, depression Endocrine/Immune: reports: thyroid disorder Other Conditions: reports: denies history - PRIOR SURGERIES/PROCEDURES Surgical/Procedure History: reports: recent surgery (oral surgery), hysterectomy , tonsillectomy, orthopedic (extremity), other - IMMUNIZATION STATUS Childhood Immunizations: See Nurse Assessment Flu Vaccine: See Nurse Assessment - FAMILY HISTORY Family History: reviewed, not pertinent - SOCIAL HISTORY Smoking: denies Substance Use: denies Living Situation: alone <Vipul Lopez - Last Filed: 12/31/18 18:34> Physical Exam-General - PHYSICAL EXAM-ADULT Initial Vital Signs Reviewed: Yes - CONSTITUTIONAL General Appearance: appears well, alert, no apparent distress, obese - EYES Eyes: PERRL/EOMI, pale conjunctivae - HEAD, EARS, NOSE, MOUTH & THROAT HENMT: moist mucous membranes, normal ENT inspection - NECK Neck: full range of motion, supple, normal inspection - RESPIRATORY Respiratory: chest non-tender, lungs clear, normal breath sounds - CARDIOVASCULAR Cardiovascular: normal peripheral pulses, regular rate, rhythm - GASTROINTESTINAL (ABDOMEN) Abdominal Exam: normal bowel sounds, non tender, soft - GENITOURINARY Rectal Exam: black stool Hemoccult Exam: heme positive stool - LYMPHATIC Lymphatic: no adenopathy - MUSCULOSKELETAL Back Exam: normal inspection, no CVA tenderness, no vertebral tenderness Extremity: normal range of motion, non-tender, normal gait, normal inspection, no calf tenderness, normal capillary refill, pelvis stable, swelling (BLE edema chronic) - SKIN Integumentary: normal turgor, warm/dry, pallor - NEUROLOGIC Neurologic: grossly normal, no motor/sensory deficits - PSYCHIATRIC Psych/Mental Status: normal mood/affect, normal thought content, normal thought process, oriented x 3 <Vipul Lopez - Last Filed: 12/31/18 18:34> Progress - PLAN OF CARE/RESULTS Progress/Plan/Lab Results: Vital Signs - 8 hr 12/31/18 15:35 Temperature 97.6 F Pulse Rate 63 Respiratory Rate 18 Blood Pressure 137/76 O2 Sat by Pulse Oximetry 99 Laboratory Results - last 24 hr 12/31/18 15:35 POC Glucose 207 H Result Diagrams: 12/31/18 17:10 12/31/18 17:10 - EKG 1 Time of EKG reading by physician:: 15:36 EKG Read and Signed by:: Vipul Lopez EKG Interpretation (*Must complete 3 of following elements*): Normal Rate: 60 Rhythm: nsr [place]: normal QRS: normal [place] Interval: normal ST Wave: normal <Vipul Lopez - Last Filed: 12/31/18 18:34> - PLAN OF CARE/RESULTS Progress/Plan/Lab Results: Vital Signs - 8 hr 12/31/18 15:35 12/31/18 15:54 12/31/18 16:00 Temperature 97.6 F Pulse Rate 63 60 57 L Pulse Rate [Sitting] Pulse Rate [Standing] Pulse Rate [Supine] Respiratory Rate 18 17 9 L Blood Pressure 137/76 Blood Pressure [Sitting] Blood Pressure [Standing] Blood Pressure [Supine] O2 Sat by Pulse Oximetry 99 98 98 12/31/18 16:05 12/31/18 16:10 12/31/18 16:20 Temperature Pulse Rate 62 61 61 Pulse Rate [Sitting] Pulse Rate [Standing] Pulse Rate [Supine] Respiratory Rate 19 15 22 Blood Pressure 129/76 Blood Pressure [Sitting] Blood Pressure [Standing] Blood Pressure [Supine] O2 Sat by Pulse Oximetry 98 98 97 12/31/18 16:30 12/31/18 16:40 12/31/18 16:50 Temperature Pulse Rate 58 L 59 L 59 L Pulse Rate [Sitting] Pulse Rate [Standing] Pulse Rate [Supine] Respiratory Rate 18 18 13 Blood Pressure 148/68 Blood Pressure [Sitting] Blood Pressure [Standing] Blood Pressure [Supine] O2 Sat by Pulse Oximetry 98 98 99 12/31/18 17:00 12/31/18 17:01 12/31/18 17:10 Temperature Pulse Rate 58 L 58 L 57 L Pulse Rate [Sitting] Pulse Rate [Standing] Pulse Rate [Supine] Respiratory Rate 20 15 15 Blood Pressure 103/82 Blood Pressure [Sitting] Blood Pressure [Standing] Blood Pressure [Supine] O2 Sat by Pulse Oximetry 98 97 12/31/18 20:26 Temperature Pulse Rate Pulse Rate [Sitting] 76 Pulse Rate [Standing] 81 Pulse Rate [Supine] 80 Respiratory Rate Blood Pressure Blood Pressure [Sitting] 167/74 Blood Pressure [Standing] 164/76 Blood Pressure [Supine] 172/82 O2 Sat by Pulse Oximetry 12/31/18 18:20 Stool Occult Blood (MARYJANE) - Final Stool Laboratory Results - last 24 hr 12/31/18 12/31/18 12/31/18 15:35 17:10 17:10 WBC 7.58 RBC 3.94 L Hgb 10.8 L Hct 34.1 L MCV 86.5 MCH 27.4 MCHC 31.7 L RDW Std Deviation 20.1 H Plt Count 229 MPV 9.3 Immature Gran % (Auto) 0.3 Neut % (Auto) 68.8 Lymph % (Auto) 23.0 [place] % (Auto) 6.3 Eos % (Auto) 1.2 Baso % (Auto) 0.4 Immature Gran # (Auto) 0.02 Neut # (Auto) 5.22 Lymph # (Auto) 1.74 [place] # (Auto) 0.48 Eos # (Auto) 0.09 Baso # (Auto) 0.03 PT INR PTT (Actin FS) Sodium 139 Potassium 4.5 Chloride 102 Carbon Dioxide 21 L Anion Gap 16 BUN 14 Creatinine 0.8 Estimated GFR/1.73 m2 > 60 BUN/Creatinine Ratio 18 Glucose 184 H POC Glucose 207 H Calculated Osmolality 283 Calcium 9.2 Total Bilirubin 0.22 AST 53 H ALT 39 H Alkaline Phosphatase 48 Troponin T Total Protein 6.3 Albumin 3.7 Globulin 2.6 Albumin/Globulin Ratio 1.4 Blood Type Antibody Screen 12/31/18 12/31/18 12/31/18 17:10 17:10 17:10 WBC RBC Hgb Hct MCV MCH MCHC RDW Std Deviation Plt Count MPV Immature Gran % (Auto) Neut % (Auto) Lymph % (Auto) [place] % (Auto) Eos % (Auto) Baso % (Auto) Immature Gran # (Auto) Neut # (Auto) Lymph # (Auto) [place] # (Auto) Eos # (Auto) Baso # (Auto) PT 13.5 INR 0.96 PTT (Actin FS) 23.2 Sodium Potassium Chloride Carbon Dioxide Anion Gap BUN Creatinine Estimated GFR/1.73 m2 BUN/Creatinine Ratio Glucose POC Glucose Calculated Osmolality Calcium Total Bilirubin AST ALT Alkaline Phosphatase Troponin T < 0.010 Total Protein Albumin Globulin Albumin/Globulin Ratio Blood Type A POSITIVE Antibody Screen NEGATIVE Orders Category Date Time Status ED: Orthostatic Vital Signs (E as directed Care 12/31/18 18:57 Active CBC WITH ELECTRONIC DIFF [HEME] Stat Lab 12/31/18 17:10 Completed COMPREHENSIVE METABOLIC PANEL [CHEM] Stat Lab 12/31/18 17:10 Completed HEMATOCRIT [HEME] Stat Lab 12/31/18 20:42 Ordered HEMOGLOBIN [HEME] Stat Lab 12/31/18 20:42 Ordered OCCULT BLOOD SCREENING [STOOL] Stat Lab 12/31/18 18:20 Completed PROTIME WITH INR [COAG] Stat Lab 12/31/18 17:10 Completed PTT [COAG] Stat Lab 12/31/18 17:10 Completed TROPONIN T Stat Lab 12/31/18 17:10 Completed TYPE & SCREEN [BBK] Stat Lab 12/31/18 17:10 Completed Lorazepam [Ativan] Med 12/31/18 17:37 Discontinued 0.5 mg IV NOW ONE Result Diagrams: 12/31/18 17:10 12/31/18 17:10 - REASSESSMENT Reassessment #1 Status: improving (pt signed out to me by Dr. Lopez pending guiac stool results. Stool guiac + vitals stable no further melena in the ED. Will admit for further evaluation and treatment. Discussed case with Dr. Rasheed, hospitialist, who will see and admit pt.) <Estela Cesar - Last Filed: 12/31/18 20:46> Departure <Vipul Lopez - Last Filed: 12/31/18 18:34> - Departure Date of Disposition Decision: 12/31/18 Time of Disposition Decision: 20:45 Certified Medical Emergency: Emergent - Critical Care Note This patient required my direct & personal management of CC.: No <Estela Cesar - Last Filed: 12/31/18 20:46> - Departure DIAGNOSIS: GI bleeding Qualifiers: GI bleed type/associated pathology: melena Qualified Code(s): K92.1 - Melena Disposition: ADMITTED INPATIENT 09 Condition: Good Referrals and Follow-Ups: Abdoulaye Tomlinson MD [Primary Care Provider] - Attestation - Physician/ ANGELIA Attestation Patient care was provided by Advanced Practice Provider:: No The physician spent face to face time with patient:: Yes Advanced Practice Provider documentation review:: Supervising physician onsite and consulted in the evaluation and care of this patient. The physician did have a face to face encounter with the patient. <Vipul Lopez - Last Filed: 12/31/18 18:34> This chart was documented by the indicated scribe, (Marylu Vang Scribe) and accurately reflects the services I performed and decisions made by me, Vipul Lopez MD, as attested by the provider's signature.
[2018-12-31 20:49] LABS: HEMATOCRIT 34.4 % (37.0-47.0); HEMOGLOBIN 10.9 g/dL (12.0-16.0)
[2018-12-31] MEDS ORDERED: ZOFRAN IV PRN (23:28)
[2018-12-31] MEDS ORDERED: SODIUM CHLORIDE 0.9% INJ SCH (23:28)
[2018-12-31] MEDS ORDERED: TYLENOL PO PRN (23:28)
[2019-01-01] MEDS: NS 1,000 ML IV SCH ×2 (00:08→18:42)
[2019-01-01] MEDS: PRILOSEC PO SCH ×4 (00:08→20:54)
[2019-01-01] MEDS: ZANTAC IV SCH ×2 (00:09→09:15)
[2019-01-01] MEDS: CARAFATE LIQUID PO SCH ×4 (00:11→11:28)
[2019-01-01 01:24] LABS: HEMATOCRIT 35.3 % (37.0-47.0)
[2019-01-01 03:40] LABS: URINE SOURCE CLEAN CATCH
--- NOTE | 2019-01-01 03:43 | HISTORY AND PHYSICAL ---
ADDENDUM CHIEF COMPLAINT: Melena. This is a 73-year-old female with history of recurrent GI bleed without a clear etiology, who comes in, now she says she has had melena for about 3 to 4 days. She does have some dizziness. She called her PCP, Dr. Tomlinson, and he told her go the ER. Now, her workup here does reveal heme- positive stools. Her hemoglobin and hematocrit is 10.9 and 34.4, which is actually better than when she was discharged about a month ago, so it has improved, but her workup at that point, I do not think the EGD and colonoscopy did not show a clear source. In any case, we will admit her, monitor her hemoglobin and hematocrit's, get a GI opinion and follow closely. I think there is a shortage of IV PPI, so we will probably have to use an H2 chhaya. She has been taking her carafate but is not on PPI presumably because she has no diagnosis based on her recent EGD findings that PPI would treat. She is also on iron but she says that iron has not discolored her stool previously. We will resume PPI (PO of course) until GI can reevaluate her. In any case, we will follow her closely. Her abdominal exam is benign. She does appear pale, but really other vitals are stable. This is a [id number] encounter note with DEVAUGHN Koenig. cc: Mansoor Rasheed MD [facility]
[2019-01-01 03:50] LABS: BILIRUBIN URINE NEGATIVE (NEGATIVE); BLOOD URINE NEGATIVE (NEGATIVE); COLOR STRAW; GLUCOSE URINE NEGATIVE (NEGATIVE); KETONE URINE NEGATIVE (NEGATIVE); LEUKOCYTES URINE NEGATIVE (NEGATIVE); NITRITE URINE NEGATIVE (NEGATIVE); PROTEIN URINE NEGATIVE (NEGATIVE); TURBIDITY URINE CLEAR (CLEAR); UR EPITHELIAL CELLS <10 /HPF (<10); URINE BACTERIA NEGATIVE /HPF; URINE RBC <10 /HPF (<10); URINE WBC <10 /HPF (<10); UROBILINOGEN URINE NORMAL (NORMAL)
[2019-01-01] MEDS: HUMULIN R SUBQ SCH ×5 (06:50→21:08)
[2019-01-01 07:43] LABS: BASO# 0.02 X1000 (0.0-0.2); BASO% 0.3 % (0.0-0.8); EOS# 0.15 X1000 (0.0-0.7); EOS% 2.2 % (0.0-10.0); HEMOGLOBIN 10.3 g/dL (12.0-16.0); LYMPH# 2.24 X1000 (1.2-3.4); LYMPH% 32.2 % (20.5-51.1); MCH 27.5 PG (27-31); MCHC 31.2 g/dL (33-37); MONO# 0.44 X1000 (0.11-0.59); MONO% 6.3 % (1.7-9.3); MPV 9.2 FL (7.4-10.4); PLT 238 X1000 (130-400); RBC 3.75 XMIL (4.2-5.4); RDW 20.7 % (11.5-14.5); WBC 6.95 X1000 (4.8-10.8)
[2019-01-01 08:00] LABS: AGAP 16; ALB/GLOB RATIO 1.6; ALBUMIN 3.6 g/dL (3.5-5.0); ALKALINE PHOSPHATASE 44 U/L (32-104); BUN 13 mg/dL (8-22); CALCIUM 8.9 mg/dL (8.8-10.2); CHLORIDE 105 mmol/L (98-107); COSMO 289; CREATININE 0.9 mg/dL (0.5-0.9); ESTIMATED GFR > 60; GLUCOSE 160 mg/dL (70-104); GOT 40 U/L (10-30); GPT 34 U/L (10-36); POTASSIUM 4.2 mmol/L (3.5-5.1); SODIUM 143 mmol/L (136-145); TCO2 22 mmol/L (25-35); TOTAL BILIRUBIN 0.23 mg/dL (0.20-1.00); TOTAL PROTEIN 5.9 g/dL (6.3-8.3)
--- NOTE | 2019-01-01 08:41 | HISTORY AND PHYSICAL ---
PRIMARY CARE PROVIDER: Dr. Abdoulaye Tomlinson. CHIEF COMPLAINT: Dizziness, nausea, as well as melena. HISTORY OF PRESENT ILLNESS: Ms. Capone is a 73-year-old female who was just recently admitted and discharged from our facility at the beginning of December. She was initially admitted for symptomatic anemia and was evaluated for gastrointestinal bleeding. They did perform an EGD that showed esophageal diverticulum and hiatal hernia as well as a colonoscopy, which showed a left- sided diverticulosis with external hemorrhoids. She did receive 1 unit of blood. Hemoglobin and hematocrit did normalize. She was discharged to followup with her primary care physician as well as Dr. Pablo. The patient was discharged with a prescription for Carafate as well as iron supplementation. The patient states that, since being discharged, she has not gained her strength back as much as she would like to and states that she was doing fairly okay though, approximately a week ago, began having black tarry stools again. She also states, for approximately a week, she has felt more weak and fatigued. She reports that, yesterday, she did get up to go to [employer], had gotten out of her car and was walking into the store when she began to feel very dizzy and weak, like she was going to pass out. The patient states she became nauseated. Secondary to this, did ultimately decide to present to the ER for further evaluation. The patient denies any recent medication changes though did state that she did take approximately 2 Aleve a few days ago. She also states that she had not been sleeping well and, the night of December 30, that she did take a total of five 10 mg melatonins to try to assist with sleep. The patient states normally she does not take anything for sleep. She is reporting dizziness. This is worse when she goes from a lying to sitting or sitting to a standing position. She denies any headache. She denies any chest pain, shortness of breath, or cough. She denies any vomiting, did report some nausea as previously mentioned. She denies any abdominal pain. She is reporting melena though has not reported any diarrhea. She is not reporting any dysuria thought stated that she felt as though her urine may have had a stronger odor than normal. She does have some chronic swelling in her bilateral lower extremities and states this has been ongoing since she was a teenager and has not worsened. Upon evaluation in the ER, the patient's hemoglobin was 10.8 and hematocrit was 34.1. Hemoccult stool was positive for blood. Given her symptoms as well as a recent history of gastrointestinal bleed, we will go ahead and admit the patient for further treatment and evaluation. REVIEW OF SYSTEMS: A 14-point review of systems was conducted with the patient and all were negative except for pertinent positives mentioned above in HPI. PAST MEDICAL HISTORY: 1. History of reported ventricular tachycardia. 2. Meniere's disease. 3. COPD. 4. Hypertension. 5. Dyslipidemia. 6. Diabetes mellitus. 7. Hypothyroidism. 8. General anxiety disorder. 9. Chronic constipation. 10. Internal hemorrhoids. PAST SURGICAL HISTORY: 1. Hysterectomy. 2. Ear surgery for Meniere's disease. 3. Left shoulder surgery. 4. Left knee surgery. 5. Sinus surgery. SOCIAL HISTORY: The patient is a former smoker though smoked for approximately 7 years in her 20s at approximately 1 pack to 1-1/2 packs a day, though has not smoked since. She denies any alcohol or illicit drug use. She does live alone in an apartment here in [place] though does have some family and friends in her apartment building that do assist her when needed. FAMILY HISTORY: Positive for her mother having a history of stroke. Her father had a history of myocardial infarction. ALLERGIES: Patient has multiple allergies, which include hydrocodone, Floxin, niacin, caffeine, Suprax, ephedrine, garlic, Reglan, prednisone, Phenergan, lactase, Robaxin, temazepam, and Ultram. HOME MEDICATIONS: 1. Xanax 0.5 mg 1 p.o. daily p.r.n. for anxiety. 2. Lipitor 40 mg p.o. daily. 3. Lexapro 15 mg p.o. daily. 4. Estradiol 200 mg p.o. daily. 5. Prozac 40 mg p.o. daily. 6. Glipizide Extended Release 5 mg p.o. daily. 7. Icar-C 1 tablet p.o. b.i.d. 8. Synthroid 25 mcg p.o. daily. 9. Centrum Silver multivitamin 1 tablet p.o. daily. 10. MiraLAX 17 grams p.o. daily p.r.n. for constipation. 11. Carafate liquid 1 g p.o. q.6. DIAGNOSTIC DATA: White blood cell count is 7.58. Hemoglobin 10.8. Hematocrit 34.1. Platelet count is 229,000. PT 13.5. INR [*]. PTT is 23.2. Sodium 139. Potassium 4.5. Chloride 102. Serum bicarb 21. BUN 14. Creatinine 0.8. Glucose 184. Calcium 9.2. Total bilirubin is 0.22. AST 53. ALT 39. Alkaline phosphatase 48. Troponin less than 0.01. Urinalysis obtained via clean cath was negative for protein, glucose, ketones, blood, nitrites, leukocytes, [*] or bacteria. EKG performed in the ER was noted to be normal sinus rhythm at a rate of 60. PHYSICAL EXAMINATION: VITAL SIGNS: Temperature 97.6 degrees. Heart rate 77. Respirations 14. Blood pressure is 164/76. Oxygen saturation is 97% on room air. GENERAL: Ms. Capone is a pleasant 73-year-old female. She was resting in the ER stretcher. She was in no acute distress. She was awake, alert, and able to answer questions appropriately. HEENT: Head is atraumatic, normocephalic. Pupils are equal, round, reactive to light, were 3 mm bilaterally and brisk. Sub-conjunctivae were slightly pale. Oral mucosa is moist. Oropharynx is clear. NECK: Supple. Trachea midline. CARDIOVASCULAR: Patient has S1-S2 present. No murmurs, gallops, rubs appreciated with regular rate and rhythm. PULMONARY: Patient has symmetrical chest expansion bilaterally. Lung sounds clear to auscultation bilaterally full baez. ABDOMEN: Soft. Nontender though did appear to be slightly distended. The patient reports she felt as though her stomach were bloated. Bowel sounds were present all 4 quadrants, were normoactive. EXTREMITIES: No cyanosis or clubbing noted. The patient does have some slight swelling noted to bilateral ankle area thought she states this is chronic and has not worsened. Radial and pedal pulses were 2+ bilaterally. Pulse, motor, and sensory is intact in all extremities. INTEGUMENTARY: The patient's skin color is slightly pale, though it is warm and dry. NEUROLOGICAL: Patient is alert and oriented to person, place, time, and situation. She is able to move all extremities. There do not appear to be focal neurological deficits noted. ASSESSMENT AND PLAN: 1. Possible gastrointestinal bleed. The patient was just recently admitted at the beginning of December for gastrointestinal bleeding. She did have EGD and colonoscopy performed, which did not show a clear source of bleeding. She was noted on her EGD to have esophageal diverticulum and hiatal hernia. Colonoscopy did show a left-sided diverticulosis and external hemorrhoids. She was placed with iron supplementation as well as Carafate and was to follow up with Dr. Pablo outpatient. Since then, the patient has developed some symptoms of fatigue, weakness, melena, and, today, some dizziness and nausea. Her hemoglobin and hematocrit are slightly low. They were stable. Repeat hemoglobin and hematocrit in the ER actually improved. Her Hemoccult stool was positive. At this time, we will place the patient with Zantac 50 mg IV q.8 hours. We will also place her with Prilosec 40 mg p.o. b.i.d. and continue her Carafate. We will also provide some gentle fluid hydration with normal saline at 100 mL/h. We will continue to monitor her hemoglobin and hematocrit. Will repeat a CBC and CMP in the morning. We have placed a consult for Dr. Pablo, gastroenterology. We will await his evaluation and further recommendations for management. She will be placed NPO after midnight until evaluated by Gastroenterology as well. 2. Anemia. We will continue with treatment as mentioned above. 3. Diabetes mellitus. At this time, we will place the patient on a sliding scale regular insulin though will place this to be patient specific sliding scale, given that she will be NPO. Will do pattern fingerstick blood sugars. 4. Hypothyroidism. We will continue her levothyroxine. 5. Deep vein thrombosis prophylaxis to be provided with sequential compression devices. The patient has been placed on the medical floor with telemetry. She will have vital signs q.4 hours and strict intake and output. Further orders and recommendations pending hospital course, diagnostic studies, and physician evaluation. Dictated by DEVAUGHN Koenig for Mansoor Rasheed MD cc: Mansoor Rasheed MD
[2019-01-01] MEDS: SYNTHROID PO SCH (11:28)
[2019-01-01] MEDS: ICAR-C PO SCH ×3 (11:29→20:57)
[2019-01-01] MEDS ORDERED: MIRALAX PO PRN (11:36)
[2019-01-01] MEDS ORDERED: XANAX PO PRN (11:36)
[2019-01-01] MEDS: ANUSOL-HC CREAM PR SCH ×2 (13:02→20:55)
[2019-01-01] MEDS: LEXAPRO PO SCH (13:42)
[2019-01-01] MEDS: LIPITOR PO SCH (13:43)
--- NOTE | 2019-01-01 14:45 | PROGRESS NOTE ---
DATE: 01/01/2019 INTERVAL HISTORY: Ms. Capone was admitted for melena. Overnight her hemoglobin was stable. She had a shower. She states that she has had this black melanotic stool since about 10 days, but she started feeling dizzy and that is why she came to the hospital. Currently she is denying any dizziness, shortness of breath, chest pain. We discussed about possibly iron contributing to black stool as well. However, we also discussed that she had stool occult blood which is positive, but she has history of hemorrhoids as well. We also discussed about possible small intestinal source of bleeding. VITALS: Currently, temperature 99.1 degrees, pulse 70, respiratory rate 17, blood pressure 120/90, saturating 98% on room air.General: On physical examination, she does not appear in any acute distress. HEENT: No pallor, cyanosis, clubbing or icterus. Lungs: Air entry bilaterally equal. No wheeze, rhonchi or crackles. Heart: S1, S2 normal. No murmur or gallop. Abdomen: Soft, nontender. Extremities: No lower extremity edema. Neurologic: She is alert and oriented x3. LABS: Suggestive of hemoglobin of 10.3, platelet of 238. Her coagulations are normal. She has normal kidney function. Urinalysis was unremarkable. Fecal occult blood test positive. ASSESSMENT AND PLAN: 1. Recurrent gastrointestinal bleeding with melena and dizziness on presentation. Differentials include diverticular bleed, hemorrhoidal bleed or small intestinal bleed. Iron tablets could also be contributing to melanotic stools, though her fecal occult blood test is positive. Currently, she is hemodynamically stable. I will monitor hemoglobin. I will start her on diabetic diet. She may not need any urgent endoscopy. However, I discussed with Gastroenterology about setting up outpatient appointment for possible capsule endoscopy. I will continue her on iron, multivitamin and omeprazole. I will continue her intravenous fluid resuscitation for now. I will also start her on topical ointment for external hemorrhoids. 2. History of anxiety and depression. Continue home escitalopram and alprazolam. 3. Continue levothyroxine for hypothyroidism, atorvastatin for hyperlipidemia. DISPOSITION: I will monitor patient inside the hospital. Will appreciate Gastroenterology recommendation. Plan of care discussed with her. All of her questions have been answered. cc: Delfino Ramirez MD
[2019-01-01] MEDS: MIRALAX PO SCH ×2 (16:48→20:55)
[2019-01-01] MEDS ORDERED: ZANTAC 50 MG in NS 50 ML IV SCH (17:00)
[2019-01-01] MEDS: METAMUCIL PO SCH (20:54)
--- NOTE | 2019-01-01 22:11 | GASTROENTEROLOGY CONSULTATION ---
DATE: 01/01/2019 ATTENDING PHYSICIAN: Delfino Ramirez MD. PRIMARY CARE PHYSICIAN: Abdoulaye Tomlinson MD. REASON FOR CONSULTATION: Anemia and positive Hemoccult. HISTORY OF PRESENT ILLNESS: Ms. Capone is a 73-year-old female who was admitted on 12/31/2018 for dizziness, nausea, as well as melena. The patient had a recent EGD and colonoscopy done a few weeks ago which showed evidence of esophageal diverticulum, hiatal hernia, and colonoscopy which showed evidence of left-sided diverticulosis and external hemorrhoids. During this admission, hematocrit was stable. It was actually better than the last time. She continues on iron supplementation since our last admission. She also complains of constipation and dark stools. She complained of feeling dizzy and weak, like she was going to pass out, while she was gone to [facility] According to her, dizziness probably could also be related to extensive exposure to sun that day. She has a prior history of heart arrhythmias. She used to see a security assurance specialist at [facility] and [facility] [place], but she has not seen a heart doctor for few years. She denies any nausea, vomiting, or blood in the stools. Her Hemoccult was positive. PAST MEDICAL HISTORY: History of reported ventricular tachycardia, Meniere disease, COPD, hypertension, hyperlipidemia, diabetes mellitus, hypothyroidism, chronic anxiety disorder, chronic constipation, internal hemorrhoids. PAST SURGICAL HISTORY: Hysterectomy, ear surgery for Meniere disease, left shoulder surgery, left knee surgery, sinus surgery, EGD and colonoscopy done a few weeks ago during the last hospitalization. SOCIAL HISTORY: She is a former smoker. She smoked for approximately 7 years in her 20s and then quit since that time. She denies any history of alcohol or drug abuse. FAMILY HISTORY: Mother had history of stroke. Father had history of myocardial infarction. ALLERGIES: Hydrocodone, Floxin, niacin, caffeine, Suprax, ephedrine, garlic, Reglan, prednisone, Phenergan, lactase, Robaxin, temazepam, Ultram. MEDICATIONS: Her medications in the hospital include Tylenol, Xanax, Lipitor, Lexapro, hydrocortisone 2.5% cream per rectal b.i.d., sliding-scale regular insulin, Iron-C, Synthroid, multivitamin, normal saline, Prilosec b.i.d., Zofran, MiraLAX, and Metamucil b.i.d. We will change the MiraLAX to twice daily. REVIEW OF SYSTEMS: Denies any fevers, rigors, chills, chest pain, shortness of breath, dyspnea at rest. She did complain of feeling weak and dizzy while she was visiting [facility] but these symptoms have gotten better. She does have a history of constipation and bloating. She has external hemorrhoids. She has history of reflux disease. She does have history of arthritis. She denies any new neurologic complaints other than her recent history of presyncopal event at [facility] PHYSICAL EXAMINATION: Vital signs: Temperature 98.2 degrees, pulse of 59, respiratory 15, blood pressure 141/73, saturating 98% on room air. Body weight of 169 pounds 1 ounce. BMI 26.1 kg. General: Moderately nourished, sitting in bed, in no acute distress. HEENT: Pale conjunctivae. No icterus. Pupils equal, reactive to light. Neck: Supple. Abdomen: Protuberant, tympanic. Discomfort in the periumbilical region. No rebound or guarding. Extremities: No cyanosis or clubbing. Neurologic: Alert, awake, oriented x3. LABORATORIES: Hemoglobin is 10.3, hematocrit is 33, white count of 6.95, platelet count of 238,000, MCV of 88. Sodium of 143, potassium of 4.2, chloride of 105, bicarb of 22, anion gap of 16, BUN of 13, creatinine of 1.9, glucose of 150, calcium 8.9. Total bilirubin is 0.23, AST 40, ALT 34, alkaline phosphatase 44, total protein is 5.2, albumin of 2.6. Urinalysis clear. Stool for occult blood was positive. Her last imaging of the abdomen and pelvis CT was done in 2018 which showed evidence of stool in the distal colon and rectum. Her last colonoscopy was done on 12/01/2018 which showed evidence of left-sided diverticulosis and external hemorrhoids. Her EGD was done on 11/30/2018 which showed esophageal diverticulum and a 5 cm hiatal hernia. IMPRESSION AND PLAN: 1. Presyncopal event with feeling dizzy and almost passed out while visiting [facility] This needs to be evaluated by the primary team and maybe the cardiology team to evaluate for any history of cardiac arrhythmias. The patient did complain of feeling hot before the symptoms. The heat wave may have played a role as well. 2. Chronic constipation. She will start on MiraLAX 17 g p.o. b.i.d. and Metamucil twice daily. 3. Diverticulosis in the left colon on recent colonoscopy. The patient will continue to avoid excessive corn, nuts, and seeds in diet and continue to take a high-fiber diet and continue Metamucil twice daily. 4. Internal hemorrhoids. We will start hydrocortisone 2.5% cream per rectal b.i.d. for 4 weeks. 5. Gastrointestinal prophylaxis with PPIs. 6. She does not have any signs of active bleeding at the moment, and her hematocrit is stable. We will continue to follow as an outpatient. She will follow with Dr. Pablo for possible video capsule endoscopy. The above plans were discussed with the patient, and all questions were answered. Please call us with any further questions. We will follow the patient as an outpatient on discharge in 3 weeks of discharge. cc: MD Delfino Alicea MD Kirk L. Jackson, MD MTDD
[2019-01-02] MEDS: PRILOSEC PO SCH (06:13)
[2019-01-02] MEDS: HUMULIN R SUBQ SCH ×3 (06:15→16:23)
[2019-01-02] MEDS ORDERED: CENTRUM SILVER PO SCH (09:00)
[2019-01-02] MEDS: ICAR-C PO SCH (09:02)
[2019-01-02] MEDS: MIRALAX PO SCH (09:02)
[2019-01-02] MEDS: METAMUCIL PO SCH (09:02)
[2019-01-02] MEDS: ANUSOL-HC CREAM PR SCH (09:02)
[2019-01-02] MEDS: LIPITOR PO SCH (12:58)
[2019-01-02] MEDS: LEXAPRO PO SCH (12:58)
[2019-01-02] MEDS: SYNTHROID PO SCH (12:58)
[2019-01-02 15:15] VITALS: BP 150/63
--- NOTE | 2019-01-02 17:12 | DISCHARGE SUMMARY ---
ADMISSION DATE: 12/31/2018 DISCHARGE DATE: 01/02/2019 DISCHARGE DISPOSITION: Home. DISCHARGE CONDITION: Patient is alert and oriented x3. Able to walk in the hallway without anyone's support. Her bowel movements have turned brown. She is denying any dizziness on physical exertion. DISCHARGE DIAGNOSES: 1. Recurrent gastrointestinal bleeding. 2. Melena and dizziness. 3. Suspected heat exhaustion. OTHER DIAGNOSES: 1. History of anxiety and depression. 2. History of hypothyroidism. 3. History of hyperlipidemia. 4. History of recurrent gastrointestinal bleeding with unremarkable upper and lower endoscopy in December 2018. CONSULTATIONS DURING HOSPITALIZATION: Agusto Singh MD DISCHARGE MEDICATIONS: She has been provided CBC slip to get repeat hemoglobin done within 5 days. 1. Estradiol 2 mg daily. 2. Glipizide extended release 5 to 10 mg with breakfast. 3. Escitalopram 15 mg daily. 4. Atorvastatin 40 mg daily. 5. MiraLAX 17 g daily. 6. Fluoxetine 40 mg daily. 7. Levothyroxine 25 mcg daily. 8. Alprazolam 0.5 mg daily. 9. Hydrocortisone 2.5% cream 2.5 g per rectal b.i.d. One tube has been prescribed. 10. Centrum Silver 1 tablet daily. 11. Iron carbonyl ascorbic acid 1 tablet b.i.d. 12. Psyllium husk 1 tablet b.i.d. 30 capsules have been prescribed. VITALS AT THE TIME OF DISCHARGE: Temperature 98.5 degrees, pulse 60, respiratory rate 17, blood pressure 150/60, saturating 99% on room air. PHYSICAL EXAMINATION: General: Does not appear in acute distress. HEENT: Oral cavity is moist. Lungs: Air entry bilaterally equal. No wheeze, rhonchi, or crackles. Cardiovascular: S1, S2 normal. No murmur, rub, or gallop. Abdomen: Soft, nontender. Extremities: No lower extremity edema. Neurological: She is alert, oriented x3. She does not have any pallor, cyanosis, clubbing, or icterus. LAB AT THE TIME OF DISCHARGE: Hemoglobin of 9.8, platelets of 238,000. Normal electrolytes. Blood glucose of 146. SIGNIFICANT MICROBIOLOGY: Stool occult blood test was positive. SIGNIFICANT IMAGING DURING THIS HOSPITAL ADMISSION: None. HOSPITAL COURSE SUMMARY: Ms. Capone is a 73-year-old lady with past medical history of diverticulosis with external hemorrhoids and gastrointestinal bleed requiring 1 unit of PRBC in early December 2018 who came in with chief complaint of black tarry stools, weakness, fatigue, and dizziness when she was walking into the store. Apparently, patient has been having black tarry stool for about 10 days and has been progressively feeling weak. On the day of presentation, she got out of her car and walking in the store with her son, she had started feeling dizzy, though she did not pass out. She decided to come to the emergency room. In the emergency room, she was hemodynamically stable. Her fecal occult blood test was positive and so she was admitted for further management under observation status. While inside the hospital, her hemoglobin and hematocrit were stable. On previous hospital admission discharge, her hemoglobin was 9.2, and during this hospital admission discharge, her hemoglobin was 9.8. She states that her melenic stool had increasingly turned brown. Considering she just had a repeat upper and lower endoscopy without any active bleeding and she was hemodynamically stable, it was decided to discharge her on iron. She was also given psyllium husk to avoid constipation because of external hemorrhoids. It was thought that her bleeding as well as dizziness could have been a combination of iron tablets, slow diverticular bleed versus small intestinal bleed. She was advised to take medicines regularly and follow up with Gastroenterology as an outpatient to discuss about possible need for capsule endoscopy. Discharge instructions were given to the patient. More than 30 minutes were spent in discharging this patient. All of her questions have been answered. cc: Delfino Ramirez MD
--- NOTE | 2019-01-03 06:09 | GASTROENTEROLOGY PROGRESS NOTE ---
DATE: 01/02/2019 SUBJECTIVE: Patient is currently ready for discharge. She denies any nausea or vomiting. Denies any abdominal pain. She moved her bowels 3 times today with laxatives. She still has abdominal bloating with a protuberant abdomen. OBJECTIVE: Vital signs: Temperature 98.5 degrees, pulse of 62, respiratory 17, blood pressure 130/60, saturating 98% room air. Body weight of 169 pounds 1 ounce. BMI 26.1 kg. General: Moderately nourished, in no acute distress. HEENT: Mild pallor. No icterus. Neck: Supple. Abdomen: Protuberant. No guarding or rebound. Extremities: No cyanosis or clubbing. Neurologic: Alert, awake, and oriented times three. LABORATORY DATA: Hemoglobin 9.8. No other labs were done today. Blood glucose 146. Stool for occult blood was positive. IMPRESSION AND PLAN: 1. Suspected gastrointestinal bleeding. Her hemoglobin and hematocrit have been stable. She had an EGD and colonoscopy done a few weeks ago. She will benefit from outpatient video capsule endoscopy. In that regard, she will follow with Dr. Pablo as an outpatient. 2. Diverticulosis in the colon. She will avoid excessive nuts, and seeds in diet. 3. Constipation. She will continue MiraLAX 17 g p.o. b.i.d. 4. Dizziness on admission which could be secondary to heat exhaustion. The patient has history of cardiac arrhythmias in the past. She will benefit from outpatient cardiology consultation. 5. History of anxiety/depression, aware. 6. History of hypothyroidism, aware. 7. History of hyperlipidemia, aware. 8. Will continue on proton pump inhibitors on discharge. She will follow up with Dr. Pablo as an outpatient. 9. Above plans were discussed with the patient and all questions answered. Please call us with any further questions. cc: MD Agusto Carlson MD
--- NOTE | 2019-01-03 07:04 | EKG Report ---
Test Performed on : 01/02/2019 10:25:49 AM Test Reason : H/o Presyncope. Eval for heart rhythm Blood Pressure : / mmHG Vent. Rate : 060 BPM Atrial Rate : 060 BPM P-R Int : 152 ms QRS Dur : 094 ms QT Int : 414 ms P-R-T Axes : 050 036 036 degrees QTc Int : 414 ms Normal sinus rhythm. Normal ECG When compared with ECG of 31-DEC-2018 15:36, (Unconfirmed) No significant change was found Unconfirmed Result
--- NOTE | 2019-01-03 08:31 | EKG Report ---
Test Performed on : 12/31/2018 3:36:29 PM Test Reason : ED. NO EKG ORDER FOR MUSE Blood Pressure : / mmHG Vent. Rate : 060 BPM Atrial Rate : 060 BPM P-R Int : 152 ms QRS Dur : 092 ms QT Int : 418 ms P-R-T Axes : 047 053 040 degrees QTc Int : 418 ms Normal sinus rhythm. Normal ECG When compared with ECG of 06-JUN-2018 13:07, No significant change was found Unconfirmed Result
== END 2019-01-02 17:15 | disposition home or self-care (01) ==
LOC: SUPCPDRO → ED 15:28 → SUATTDRO 22:12 → INTOOBSV 22:12 → 4N 22:12
PROVIDERS: ATTEND Internal Medicine
CPT/HCPCS: 80053; 81001; 82270; 82948; 84484; 85014; 85018; 85025; 85610; 85730; 86850; 86900; 86901; 93005; 96374; 99285; A9270; J2060; J2780; J7030; XXXXX

== ENCOUNTER 2019-03-17 17:48 | Observation (INO) ==
[2019-03-17] MEDS ORDERED: BENADRYL IV ONE (19:11)
[2019-03-17] MEDS: REGLAN IV ONE ×2 (19:11→20:44)
[2019-03-17] MEDS ORDERED: NS 1,000 ML IV ONE (19:11)
[2019-03-17] MEDS ORDERED: ANTIVERT PO ONE (19:20)
--- NOTE | 2019-03-17 20:18 | Diag Imaging Result Doc PS360 ---
EXAM: CT HEAD W/O CONTRAST INDICATION: severe dizziness after left ear procedure TECHNIQUE: This exam was performed using automated exposure control, adjustment of mA or kV according to patient size, and/or use of iterative reconstruction technique. COMPARISON: 11/29/2018 FINDINGS: There is stable diffuse brain atrophy. There is no definite acute infarct given the limited sensitivity of CT versus MRI. There is no discrete intracranial mass, mass effect, or intracranial hemorrhage. There is evidence of a prior mastoidectomy on the left, stable. There is stable mild left sphenoid sinus mucosal thickening. Surrounding soft tissues and bony structures are essentially unremarkable, otherwise. IMPRESSION: Stable chronic changes but no evidence of acute intracranial pathology. Electronically signed by Bartolo Hayes 03/17/2019 8:16 PM
--- NOTE | 2019-03-17 20:24 | Diag Imaging Result Doc PS360 ---
EXAM: CT MAXILLOFACIAL(SINUS) W/O CO INDICATION: severe dizziness after left ear procedure TECHNIQUE: COMPARISON: None. FINDINGS: There is evidence of a prior mastoidectomy on the left. There is evidence of prior bilateral maxillary antrostomies. There is mild chronic appearing mucosal thickening involving the left sphenoid sinus and at the floor of the right maxillary sinus. The paranasal sinuses are clear, otherwise. The mastoid air cells are clear. The middle ear cavities are clear. There is no evidence of facial bone fracture. The mandible is normally located. The globes are intact. There is no retrobulbar hematoma. Surrounding soft tissues are unremarkable. IMPRESSION: 1.Minimal right maxillary and left sphenoid sinus mucosal disease. 2.Postsurgical changes associated with the left mastoid bone and maxillary sinuses as described. 3.No definite acute pathology. Electronically signed by Bartolo Hayes 03/17/2019 8:21 PM
[2019-03-17 21:21] LABS: BASO# 0.02 X1000 (0.0-0.2); BASO% 0.2 % (0.0-0.8); EOS# 0.01 X1000 (0.0-0.7); EOS% 0.1 % (0.0-10.0); HEMATOCRIT 36.6 % (37.0-47.0); HEMOGLOBIN 11.7 g/dL (12.0-16.0); IMM GRAN# 0.03 X1000 (0.0-0.04); IMM GRAN% 0.3 % (0.0-0.5); MCH 27.4 PG (27-31); MCV 85.7 FL (81-99); MONO# 0.33 X1000 (0.11-0.59); MONO% 3.6 % (1.7-9.3); NEUT# 7.68 X1000 (1.4-6.5); NEUT% 84.8 % (42.2-75.2); PLT 237 X1000 (130-400); RBC 4.27 XMIL (4.2-5.4); RDW 15.5 % (11.5-14.5); WBC 9.07 X1000 (4.8-10.8)
[2019-03-17 21:39] LABS: AGAP 18; BUN 14 mg/dL (8-22); CALCIUM 8.9 mg/dL (8.8-10.2); CHLORIDE 99 mmol/L (98-107); COSMO 277; CREATININE 0.9 mg/dL (0.5-0.9); ESTIMATED GFR > 60; GLUCOSE 241 mg/dL (70-104); POTASSIUM 4.6 mmol/L (3.5-5.1); SODIUM 134 mmol/L (136-145); TCO2 18 mmol/L (25-35); TOTAL PROTEIN 6.4 g/dL (6.3-8.3)
[2019-03-17 21:40] LABS: ALBUMIN 4.1 g/dL (3.5-5.0); ALKALINE PHOSPHATASE 49 U/L (32-104); CK PROFILE 63 U/L (24-173); GOT 46 U/L (10-30); GPT 27 U/L (10-36); MAGNESIUM 1.5 mg/dL (1.5-2.7)
[2019-03-17] MEDS ORDERED: ANTIVERT PO PRN (21:52)
[2019-03-17] MEDS ORDERED: D50W SYRINGE IV ONE (21:52)
--- NOTE | 2019-03-17 21:52 | PROVIDER DOCUMENTATION ---
This chart was entered by Austin Daniels Scribe, acting as scribe for Carroll Kang MD. HPI-EENT General - General Chief Complaint: Nausea/Vomiting Stated Complaint: Nasuea, vomiting Time Seen by Provider: 03/17/19 18:45 Source: patient Allergies/Adverse Reactions: Patient Allergies Allergy/AdvReac Type Severity Reaction Status Date / Time hydrocodone Allergy Severe IN Verified 12/31/18 16:32 EXCESS>CONFUSION AND SLEEPINESS ofloxacin [From Floxin] Allergy Severe ANAPHYLAXIS Verified 12/31/18 16:32 niacin Allergy Intermediate HIVES Verified 12/31/18 16:32 caffeine Allergy Unknown Unknown Verified 12/31/18 16:32 cefixime [From Suprax] Allergy Unknown Unknown Verified 12/31/18 16:32 Ephedrine Analogues Allergy Unknown HEART Verified 12/31/18 16:32 RACING garlic Allergy Unknown NAUSEA/VOMI Verified 12/31/18 16:32 TING metoclopramide HCl * Allergy Unknown HALLUCINATIONS;"EVERYTHING'S Verified 12/31/18 16:32 [From Reglan] CRAWLING" prednisone Allergy Unknown Unknown Verified 12/31/18 16:32 promethazine HCl * Allergy Unknown HALLUCINATI Verified 12/31/18 16:32 [From Phenergan] ONS lactase [From Dairy Aid] Allergy Unknown Verified 12/31/18 16:32 methocarbamol [From Robaxin] Allergy VOMITING Verified 12/31/18 16:32 temazepam AdvReac Severe Nightmares Verified 12/31/18 16:32 tramadol HCl * [From Ultram] AdvReac Intermediate DIZZINESS Verified 12/31/18 16:32 IF TAKING TOO MUCH Home Medications: Home Medication List Medication Instructions Recorded Confirmed Last Taken Type Fluoxetine HCl [Prozac] 40 mg PO DAILY@1200 05/12/14 12/31/18 11/28/18 12:00 History Atorvastatin Calcium [Lipitor] 40 mg PO DAILY@1200 12/15/17 12/31/18 11/28/18 12:00 History Alprazolam [Xanax] 1 tab PO DAILY PRN 06/06/18 12/31/18 11/28/18 14:00 History Escitalopram Oxalate [Lexapro] 15 mg PO DAILY@1200 11/29/18 12/31/18 11/28/18 12:00 History Estradiol 2 mg PO DAILY@1200 11/29/18 12/31/18 11/28/18 12:00 History Glipizide E.r. [Glucotrol Xl] 5 - 10 mg PO WBREAKFAST 11/29/18 12/31/18 11/28/18 08:00 History 5mg Levothyroxine [Synthroid] 25 microgm PO DAILY@1200 11/29/18 12/31/18 11/28/18 12:00 History Iron Carbonyl/Ascorbic Acid 1 ea PO BID #120 tab 12/01/18 12/31/18 Unknown Rx [Icar-C] Multivitamins/Minerals [Centrum 1 ea PO DAILY #120 tab 12/01/18 12/31/18 Unknown Rx Silver] Polyethylene Glycol 3350 [Miralax] 17 gm PO DAILY PRN PRN 12/31/18 12/31/18 Unknown History Hydrocortisone 2.5% Cream 2.5 gm NV BID #1 tube 01/02/19 Unknown Rx [Anusol-Hc Cream] Psyllium Husk [Metamucil] 1 ea PO BID #30 cap 01/02/19 Unknown Rx - History of Present Illness-EENT General Nature of Presenting Problem: Pt is a 73 yof who presents to the ED with a CC of N/V/D. Pt states she had an ENT appointment with Dr. Adames this morning at 1100. Pt states she received an ear profusion to the left ear and a steroid was injected into her left ear. Pt states shortly after her appointment she became nauseas, dizzy, and off balance. Pt states she was vomiting up phlegm and states she hasn't eaten today. Pt also complains of having diarrhea. Pt states her symptoms worsen when she moves her head. Pt reports a hx of multiple ear profusions in the past. Pt reports having no symptoms prior to her ENT appointment. Pt reports a hx of being pre-diabetic. EENT Location: reports: ear (L) Quality of Pain: reports: dull Severity: reports: mild Onset/Duration: reports: 4-6 hours ago Timing: reports: still present Prearrival Treatment: Initiated other (See HPI) Associated Symptoms: reports: other (Nausea, vomiting, diarrhea, dizziness, loss of balance) Locality of Occurance: Other (Dr. Adames's office) Similar Symptoms Previously?: No Recently seen or treated by another doctor?: Yes - Ears Ear Problem Symptoms: reports: other (See HPI) Ear Problem Context: reports: other (See HPI) Review of Systems - Adult - REVIEW OF SYSTEMS - ADULT Constitutional: reports: see HPI Eyes: reports: no symptoms reported Ears, Nose, Mouth & Throat: reports: see HPI, ear pain Cardiovascular: reports: no symptoms reported Respiratory: reports: no symptoms reported Gastrointestinal: reports: see HPI, diarrhea, nausea, vomiting Genitourinary: reports: no symptoms reported Musculoskeletal: reports: no symptoms reported Integumentary: reports: no symptoms reported Neurological: reports: no symptoms reported Psychiatric: reports: no symptoms reported Endocrine: reports: no symptoms reported Hematologic/Lymphatic: reports: no symptoms reported Allergic/Immunologic: reports: no symptoms reported All Other Systems: Reviewed and Negative Past History - Adult - PAST MEDICAL HISTORY-ADULT Review of Records: reports: Old Records Reviewed, Nursing Assessment Review, Medications Reviewed, Social history reviewed & non-contributory. Major Childhood Illnesses: reports: denies history Cardiovascular: reports: hyperlipidemia, other (Histroy of Vent Tachycarida. Stable for years.) Respiratory: reports: COPD (Quit smoking many years ago .) Gastrointestinal: reports: denies history Obstetrical/Gynecological: reports: denies history Genitourinary: reports: denies history Musculoskeletal: reports: arthritis, chronic pain, orthopedic injury Neurological: reports: CVA, stroke deficits, other (Mienier's disease) Psychiatric: reports: anxiety, depression Endocrine/Immune: reports: thyroid disorder Other Conditions: reports: denies history - PRIOR SURGERIES/PROCEDURES Surgical/Procedure History: reports: recent surgery (oral surgery), hysterectomy , tonsillectomy, orthopedic (extremity), other - IMMUNIZATION STATUS Childhood Immunizations: See Nurse Assessment Flu Vaccine: See Nurse Assessment - FAMILY HISTORY Family History: reviewed, not pertinent - SOCIAL HISTORY Smoking: non-smoker, quit greater than 1 year Substance Use: none/never, denies Alcohol Use Frequency: never Physical Exam- EENT - Physical Exam EENT Initial Vital Signs Reviewed: Yes General Appearance: alert, mild distress Ear Exam: right ear: TM normal, left ear: tenderness, TM red, TM bulging, other (Fluid behind ear) Neck: non-tender, limited range of motion Respiratory: chest non-tender, lungs clear, normal breath sounds, no pleuratic chest pain, no respiratory distress, no accessory muscle use Cardiovascular: normal peripheral pulses, bradycardia Abdominal Exam: non tender, soft Extremity: normal range of motion, non-tender, swelling (1-2+ edema bilateral to the lower extremities) Integumentary: normal color, warm/dry Neurologic: grossly normal, no motor/sensory deficits Psych/Mental Status: normal mood/affect, normal thought content, normal thought process, oriented x 3 Progress - PLAN OF CARE/RESULTS Progress/Plan/Lab Results: Vital Signs - 8 hr 03/17/19 18:16 03/17/19 20:11 Temperature 97.9 F 98.1 F Pulse Rate 53 L 53 L Respiratory Rate 18 21 Blood Pressure 158/71 174/56 O2 Sat by Pulse Oximetry 98 97 Laboratory Results - last 24 hr 03/17/19 03/17/19 03/17/19 21:14 21:14 21:14 WBC 9.07 RBC 4.27 Hgb 11.7 L Hct 36.6 L MCV 85.7 MCH 27.4 MCHC 32.0 L RDW Std Deviation 15.5 H Plt Count 237 MPV 9.0 Immature Gran % (Auto) 0.3 Neut % (Auto) 84.8 H Lymph % (Auto) 11.0 L [place] % (Auto) 3.6 Eos % (Auto) 0.1 Baso % (Auto) 0.2 Immature Gran # (Auto) 0.03 Neut # (Auto) 7.68 H Lymph # (Auto) 1.00 L [place] # (Auto) 0.33 Eos # (Auto) 0.01 Baso # (Auto) 0.02 Sodium 134 L Potassium 4.6 Chloride 99 Carbon Dioxide 18 L Anion Gap 18 BUN 14 Creatinine 0.9 Estimated GFR/1.73 m2 > 60 BUN/Creatinine Ratio 16 Glucose 241 H Calculated Osmolality 277 Calcium 8.9 Magnesium 1.5 Total Bilirubin 0.30 AST 46 H ALT 27 Alkaline Phosphatase 49 Creatine Kinase 63 Troponin T < 0.010 Total Protein 6.4 Albumin 4.1 Globulin 2.0 Albumin/Globulin Ratio 2.0 Orders Category Date Time Status Nursing- Obtain EKG once Care 03/17/19 19:09 Active Saline Loc NOW Care 03/17/19 19:[address] HEAD W/O CONTRAST [CT] Stat Exams 03/17/19 19:[address] MAXILLOFACIAL(SINUS) W/O CO [CT] Stat Exams 03/17/19 19:11 Completed CBC WITH ELECTRONIC DIFF [HEME] Stat Lab 03/17/19 21:14 Completed CK PROFILE [SP CHEM] Stat Lab 03/17/19 21:14 Completed COMPREHENSIVE METABOLIC PANEL [CHEM] Stat Lab 03/17/19 21:14 Completed MAGNESIUM [CHEM] Stat Lab 03/17/19 21:14 Completed PRO B-NATRIURETIC PEPTIDE Stat Lab 03/17/19 20:53 Received PROTIME WITH INR [COAG] Stat Lab 03/17/19 21:14 Received TROPONIN T Stat Lab 03/17/19 21:14 Completed 0.9% Sodium Chloride Inj [Ns] 1,000 ml Med 03/17/19 19:11 Discontinued IV 999 mls/hr Diphenhydramine [Benadryl] Med 03/17/19 19:11 Discontinued 25 mg IV NOW ONE Meclizine [Antivert] Med 03/17/19 19:20 Discontinued 50 mg PO NOW ONE Metoclopramide [Reglan] Med 03/17/19 19:11 Discontinued 10 mg IV NOW ONE EKG [EKG] Stat Ther 03/17/19 19:09 Ordered Result Diagrams: 03/17/19 21:14 03/17/19 21:14 - REASSESSMENT Reassessment #1 Time Reassessed: 21:47 Reassessment Comment: Consult with Dr. Carreon - made aware of pt and accepts a dmission - EKG 1 Time of EKG reading by physician:: 21:00 EKG Read and Signed by:: Carroll Kang EKG Interpretation (*Must complete 3 of following elements*): Normal (Sinus bradycardia otherwise normal ECG) Rate: 53 Rhythm: Sinus bradycardia Temperance: normal QRS: normal NV Interval: normal ST Wave: normal - CT/MRI 1 CT Study: Head Impression: Abnormal, See EMR Report (Patient: MARY BOWEN WADM Date: 03/17/19MR#: [id number] : 8ADM Status: REG ERAcct#: [id number] Age/Sex: 73/FRoom/Bed: Loc: P.ED Ordering Physician: Carroll Kang MD Family Physician: Abdoulaye Tomlinson MD Reason for Procedure: severe dizziness after left ear procedure Signed EXAM: CT MAXILLOFACIAL(SINUS) W/O CO INDICATION: severe dizziness after left ear procedure TECHNIQUE: COMPARISON: None. FINDINGS: There is evidence of a prior mastoidectomy on the left. There is evidence of prior bilateral maxillary antrostomies. There is mild chronic appearing mucosal thickening involving the left sphenoid sinus and at the floor of the right maxillary sinus. The paranasal sinuses are clear, otherwise. The mastoid air cells are clear. The middle ear cavities are clear. There is no evidence of facial bone fracture. The mandible is normally located. The globes are intact. There is no retrobulbar hematoma. Surrounding soft tissues are unremarkable. IMPRESSION: 1.Minimal right maxillary and left sphenoid sinus mucosal disease. 2.Postsurgical changes associated with the left mastoid bone and maxillary sinuses as described. 3.No definite acute pathology. Electronically signed by Bartolo Hayes 03/17/2019 8:21 PM) 2 CT Study: Head Impression: Abnormal, See EMR Report (Signed EXAM: CT HEAD W/O CONTRAST INDICATION: severe dizziness after left ear procedure TECHNIQUE: This exam was performed using automated exposure control, adjustment of mA or kV according to patient size, and/or use of iterative reconstruction technique. COMPARISON: 11/29/2018 FINDINGS: There is stable diffuse brain atrophy. There is no definite acute infarct given the limited sensitivity of CT versus MRI. There is no discrete intracranial mass, mass effect, or intracranial hemorrhage. There is evidence of a prior mastoidectomy on the left, stable. There is stable mild left sphenoid sinus mucosal thickening. Surrounding soft tissues and bony structures are essentially unremarkable, otherwise. IMPRESSION: Stable chronic changes but no evidence of acute intracranial pathology. Electronically signed by Bartolo Hayes 03/17/2019 8:16 PM [id number]) - CONSULTS/PCP/HOSPITALIST Notification #1 *Consult/PCP/Hospitalist*: Dr. Casper Time Discussed: 19:20 Reason/Comments: Will contact Dr. Adames and discuss patient. Consult Disposition: other #2 Consult: Dr. Adames Time Discussed: 19:30 Reason/Comments: Made aware of patient, admit to hospitalist Consult Disposition: Admit (Made aware of patient and states he will see the patient in the AM.) #3 Consult: Dr. Tomlinson Time Discussed: 19:35 Reason/Comments: Made aware of patient, agrees with Dr. Adames Consult Disposition: other Departure - Departure Date of Disposition Decision: 03/17/19 Time of Disposition Decision: 21:51 DIAGNOSIS: Diffuse labyrinthitis of left ear, Type 2 diabetes mellitus with hyperglycemia, with long-term current use of insulin Disposition: ADMITTED INPATIENT 09 Certified Medical Emergency: Emergent Condition: Stable Referrals and Follow-Ups: Abdoulaye Tomlinson MD [Primary Care Provider] - - Critical Care Note This patient required my direct & personal management of CC.: No Attestation - Physician/ ANGELIA Attestation Patient care was provided by Advanced Practice Provider:: No The physician spent face to face time with patient:: Yes Advanced Practice Provider documentation review:: Supervising physician onsite and consulted in the evaluation and care of this patient. The physician did have a face to face encounter with the patient. This chart was documented by the indicated scribe, (Austin Daniels Scribe) and accurately reflects the services I performed and decisions made by me, Carroll Kang MD, as attested by the provider's signature.
[2019-03-17 22:03] LABS: INR 0.99; PROTIME 13.6 Seconds (11.0-16.0)
[2019-03-18] MEDS: HUMULIN R (PARKWAY) SUBQ SCH ×5 (00:05→21:14)
[2019-03-18 01:28] LABS: BILIRUBIN URINE NEGATIVE (NEGATIVE); BLOOD URINE NEGATIVE (NEGATIVE); KETONE URINE 1+(Small) mg/dL (NEGATIVE); LEUKOCYTES URINE NEGATIVE (NEGATIVE); NITRITE URINE NEGATIVE (NEGATIVE); PROTEIN URINE NEGATIVE (NEGATIVE); URINE SOURCE CLEAN CATCH; UROBILINOGEN URINE NORMAL
[2019-03-18 01:29] LABS: CLARITY CLEAR (CLEAR); COLOR YELLOW; URINE BACTERIA 1+ /HFP; URINE EPITHELIAL CELLS <10 /HPF (<10); URINE RBC <10 /HPF (<10); URINE WBC <10 /HPF (<10)
[2019-03-18] MEDS: TYLENOL PO PRN ×2 (03:56→19:57)
--- NOTE | 2019-03-18 05:05 | EKG Report ---
Test Performed on : 03/17/2019 8:57:45 PM Test Reason : dizziness Blood Pressure : / mmHG Vent. Rate : 053 BPM Atrial Rate : 053 BPM P-R Int : 158 ms QRS Dur : 092 ms QT Int : 490 ms P-R-T Axes : 071 045 042 degrees QTc Int : 459 ms Sinus bradycardia. Otherwise normal ECG When compared with ECG of 02-JAN-2019 10:25, No significant change was found Unconfirmed Result
[2019-03-18] MEDS: THERA M PLUS PO SCH (10:15)
[2019-03-18] MEDS: XANAX PO SCH ×2 (10:17→19:59)
--- NOTE | 2019-03-18 10:25 | HISTORY AND PHYSICAL ---
PRIMARY CARE PHYSICIAN: Dr. Abdoulaye Tomlinson. CHIEF COMPLAINT: Nausea, vomiting and diarrhea that began after she received an ear perfusion to her left ear and a steroid injection to her left ear by Dr. Adames yesterday at 11 a.m. HISTORY OF PRESENTING ILLNESS: This is a 73-year-old female, who presents to [facility] ER with complaints of nausea, vomiting and diarrhea that began after she had an ENT appointment with Dr. Adames at 11 a.m. on the . States she received an ear perfusion to her left ear and steroid was injected into her left ear. Shortly after the appointment, she became nauseated, dizzy, off-balance, was vomiting up phlegm and having diarrhea. States that the symptoms worsened if she moved her head. She states that she has had multiple ear perfusions in the past, and no symptoms prior to this ENT appointment. Her workup was essentially benign. We did a maxillofacial CT that showed minimal right maxillary and left sphenoid sinus mucosal disease. Post surgical changes associated with left mastoid bone and maxillary sinuses, but no acute definite pathology. We did a CT of the head that showed stable chronic changes, but no evidence of an acute intracranial pathology. The ER physician spoke with ENT on-call last night, who felt she should be admitted for observation, and they would see her this morning. So she was admitted for further evaluation and treatment. PAST MEDICAL HISTORY: Meniere's, COPD, hypertension, dyslipidemia, diabetes type 2, hypothyroidism, general anxiety, chronic constipation and internal hemorrhoids. PAST SURGICAL HISTORY: A hysterectomy, ear surgery for Meniere's, left shoulder surgery, left knee and sinus. FAMILY HISTORY: Mom had a CVA. Father had an AR. SOCIAL HISTORY: She currently lives alone, is a former smoker when she was in her 20s, but has not smoked since. Denies any alcohol or illicit drug use. ALLERGIES: Hydrocodone, ofloxacin, niacin, caffeine, Cefixime, ephedrine, garlic, metoclopramide, prednisone, promethazine, lactase, methocarbamol, temazepam and tramadol. HOME MEDICATIONS: She takes Xanax 0.5 mg p.o. b.i.d., Lipitor 40 mg p.o. daily, Lexapro 15 mg p.o. daily, estradiol 2 mg p.o. daily, levothyroxine 25 mcg p.o. daily, Centrum Silver 1 p.o. daily. She states that she takes glipizide, but it is not listed on her home medications. So, I will have the nurse to verify this medication for her diabetes. LABORATORY DATA: Showed a white blood cell count of 9.07, hemoglobin 11.7, hematocrit 36.6, platelets 237. PT and INR of 13.6 and 0.99. Sodium 134, potassium 4.6, chloride 99, CO2 18. BUN of 14, creatinine 0.9, glucose 241, magnesium 1.5. AST of 46, ALT 26. Cardiac enzyme was negative. ProBNP of 106. Urinalysis was negative. X-RAY DATA: 1. Head CT showed stable chronic changes, but no definite evidence of acute intracranial pathology. 2. Maxillofacial CT showed minimal right maxillary and left sphenoid sinus mucosal disease. Postsurgical changes associated with the left mastoid bone and maxillary sinuses as described, and no definite acute pathology. REVIEW OF SYSTEMS: She denied any fever, chills, blurred vision. She did have some dizziness. Denied any chest pain, coughing, shortness of breath. She had nausea, vomiting and diarrhea. No burning or hurting with urination. PHYSICAL EXAMINATION: VITAL SIGNS: On arrival she had a temperature of 97.9 degrees, pulse 53, respirations 18, blood pressure 158/71, satting 98% on room air. GENERAL: This is a 73-year-old female, who is lying in the bed and answers questions appropriately. HENT: Normocephalic, atraumatic. Normal ENT inspection. Oropharynx and nares are clear. EYES: Pupils are equal, round, and reactive to light and accommodation. Extraocular movements are intact. NECK: Normal inspection. Normal range of motion. LUNGS: Clear to auscultation bilaterally with equal lung expansion and chest wall movement. HEART: With regular rate and rhythm. No murmurs, rubs, or gallops. ABDOMEN: Soft, nontender, nondistended. Bowel sounds are present x4 quadrants. MUSCULOSKELETAL: She had 5/5 strength x4 extremities. NEUROLOGICAL: The cranial nerves 2-12 appear grossly intact. ASSESSMENT: 1. Diffuse labyrinthitis of the left ear. 2. Diabetes type 2 with hyperglycemia. 3. Nausea, vomiting, and diarrhea secondary to #1. 4. Hypothyroidism. PLAN: She was admitted to the medical unit, placed on telemetry, diabetic diet. Placed on pattern blood sugars with sliding scale insulin, meclizine 25 mg p.o. q. 4 hours p.r.n. Continued her home medications. I spoke with ENT office this morning to discuss her case. She states she is feeling much better this morning. They feel that if she is better, then she could be discharged home. Follow up in their office outpatient at her regular scheduled follow-up appointment. We will discuss this with attending and further orders at that time. Dictated by DEVAUGHN Haro for Jj Carreon MD cc: DEVAUGHN Haro MD Kirk L. Jackson, MD
[2019-03-18] MEDS ORDERED: LEXAPRO PO SCH (12:00)
[2019-03-18] MEDS ORDERED: ESTRACE PO SCH (12:00)
[2019-03-18] MEDS ORDERED: LIPITOR PO SCH (12:00)
--- NOTE | 2019-03-18 22:53 | HISTORY AND PHYSICAL ---
ADDENDUM: Patient seen and examined by myself. Full note dictated and discussed with nurse practitioner. Patient recently saw Dr. Adames for vertigo. She performed an injection in her ear. She went home. Apparently, the nausea, dizzy and syncopal episodes worsened. She therefore presented to the hospital. We are going to admit her to the hospital for observation. She no longer smokes. Vital signs are stable. Labs are stable with exception of elevated blood sugar. Hopefully with some with some mild fluid rehydration and controlling her blood sugar her dizzy and vertigo symptoms will improve. If so, she can be discharged home. cc: Jj Carreon MD
[2019-03-19] MEDS: HUMULIN R (PARKWAY) SUBQ SCH (06:00)
[2019-03-19] MEDS ORDERED: SYNTHROID PO SCH (07:00)
[2019-03-19 08:11] VITALS: BP 150/56
[2019-03-19] MEDS: XANAX PO SCH (08:44)
[2019-03-19] MEDS: THERA M PLUS PO SCH (08:44)
--- NOTE | 2019-03-19 19:21 | DISCHARGE SUMMARY ---
ADMISSION DATE: 03/17/2019 DISCHARGE DATE: 03/19/2019 PRIMARY CARE PHYSICIAN: Dr. Abdoulaye Tomlinson. ADMISSION DIAGNOSES: 1. Diffuse labyrinthitis of the left ear. 2. Diabetes type 2 with hyperglycemia. 3. Nausea, vomiting, and diarrhea secondary to #1. 4. Hypothyroidism. DISCHARGE DIAGNOSES: 1. Diffuse labyrinthitis of the left ear, improved. 2. Diabetes type 2 with hyperglycemia. 3. Nausea, vomiting, and diarrhea secondary to #1, resolved. 4. Hypothyroidism. SUMMARY OF FINDINGS: This is a 73-year-old female who presented to the ER with nausea, vomiting, and diarrhea that began after she had an ENT appointment with Dr. Adames at 11:00 a.m. on the and received an ear perfusion to her left ear and a steroid injection into her left ear. Shortly after she became nauseated, dizzy, and off balance. She was also vomiting up some phlegm and having diarrhea. If she moved, the symptoms worsened. She has had multiple ear perfusions in the past with no symptoms prior to this ENT appointment. We did a maxillofacial CT that showed minimal right maxillary and left sphenoid sinus mucosal disease. We did a CT of the head that showed stable chronic changes. We did speak with ENT who felt that she could be observed and then follow up in his office as scheduled for her followup and it is now felt her symptoms are resolved. No further nausea, vomiting, or diarrhea. Dizziness is much improved and that she can safely be discharged home today. DISCHARGE MEDICATIONS: Xanax 0.5 mg p.o. b.i.d., atorvastatin 40 mg p.o. daily, Lexapro 15 mg p.o. daily, estradiol 2 mg p.o. daily, levothyroxine 25 mcg p.o. daily, and multivitamin p.o. daily. FOLLOWUP: She will follow up with her primary care physician in the next 1 to 2 weeks and call the office for an appointment. She will follow up with ENT as previously scheduled. She also will have home health care at her home. TIME SPENT: This is a 35-minute discharge. Dictated by DEVAUGHN Haro for Jj Carreon MD cc: DEVAUGHN Haro MD Kirk L. Jackson, MD
--- NOTE | 2019-03-19 19:43 | DISCHARGE SUMMARY ---
ADMISSION DATE: 03/17/2019 DISCHARGE DATE: 03/19/2019 SUBJECTIVE: On discharge the patient is awake and alert. She is fully dressed. She notes she is feeling tremendously back to normal. Notes that her dizziness has resolved and her nausea and vomiting have resolved and she is asking to go home. PLAN: She will discharge home. She will follow up outpatient with her primary care as well as with ENT as needed. No changes are made on her home medications, diet, or activity. cc: Jj Carreon MD
== END 2019-03-19 12:11 | disposition home health service (06) ==
LOC: P.MEDSURG 17:48 → P.ED 17:48
PROVIDERS: ATTEND Family Medicine

== ENCOUNTER 2019-03-22 12:13 | Inpatient (IN) ==
--- NOTE | 2019-03-22 12:24 | PROVIDER DOCUMENTATION ---
HPI-Syncope/Dizziness - General Stated Complaint: FALL/AMS Time Seen by Provider: 03/22/19 12:20 Source: patient, EMS Allergies/Adverse Reactions: Patient Allergies Allergy/AdvReac Type Severity Reaction Status Date / Time hydrocodone Allergy Severe IN Verified 12/31/18 16:32 EXCESS>CONFUSION AND SLEEPINESS ofloxacin [From Floxin] Allergy Severe ANAPHYLAXIS Verified 12/31/18 16:32 niacin Allergy Intermediate HIVES Verified 12/31/18 16:32 caffeine Allergy Unknown Unknown Verified 12/31/18 16:32 cefixime [From Suprax] Allergy Unknown Unknown Verified 12/31/18 16:32 Ephedrine Analogues Allergy Unknown HEART Verified 12/31/18 16:32 RACING garlic Allergy Unknown NAUSEA/VOMI Verified 12/31/18 16:32 TING metoclopramide HCl * Allergy Unknown HALLUCINATIONS;"EVERYTHING'S Verified 12/31/18 16:32 [From Reglan] CRAWLING" prednisone Allergy Unknown Unknown Verified 12/31/18 16:32 promethazine HCl * Allergy Unknown HALLUCINATI Verified 12/31/18 16:32 [From Phenergan] ONS lactase [From Dairy Aid] Allergy Unknown Verified 12/31/18 16:32 methocarbamol [From Robaxin] Allergy VOMITING Verified 12/31/18 16:32 temazepam AdvReac Severe Nightmares Verified 12/31/18 16:32 tramadol HCl * [From Ultram] AdvReac Intermediate DIZZINESS Verified 12/31/18 16:32 IF TAKING TOO MUCH Home Medications: Home Medication List Medication Instructions Recorded Confirmed Last Taken Type Atorvastatin Calcium [Lipitor] 40 mg PO DAILY@119912/15/17 03/22/19 11/28/18 12:00 History Alprazolam [Xanax] 0.5 mg PO BID 06/06/18 03/22/19 11/28/18 14:00 History Escitalopram Oxalate [Lexapro] 15 mg PO DAILY@119911/29/18 03/22/19 11/28/18 12:00 History Estradiol 2 mg PO DAILY@119911/29/18 03/22/19 11/28/18 12:00 History Multivitamins/Minerals [Centrum 1 ea PO DAILY #120 tab 12/01/18 03/22/19 Unknown Rx Silver] Levothyroxine Sodium 25 mcg PO DAILY@0700 03/18/19 03/22/19 Unknown History - History of Present Illness-Syncope/Dizzy Nature of Presenting Problem: 73 YO White female [facility] and s/p fall unknown length of time ago. Per EMS, pt has new onset AMS. Pt self reports hx of stroke. Was seen here on 03/17 for dizziness s/p steroid injection for treatment of Menieres. 1420- Brother who is POA is present in the room. States pt lives in an independent living facility. He got a phone call that the patient was found down and had was calling for help. He does not know of any stroke occurring to patient. Prior Episodes: reports: recent history (pt with recent dizziness and fall, recently treated for meniere's) Symptoms prior to episode: reports: headache Context: reports: lost consciousness, collapsed Loss of Consciousness: unsure Location of injury. (If syncope resulted in an injury.): reports: head Current Symptoms: reports: shoulder pain, arm pain, weakness, headache. denies: chest pain, abdominal pain, nausea, vomiting Recently Seen Here or By Another Healthcare Provider: Yes - Dizziness Severity in ED: reports: mild Dizziness Related Current/Associated Symptoms: reports: headache Any recent trauma/injury?: reports: minor Modifying Factors: improves with: changing position (make dizziness worse, elevating head of bed.), other medication (makes symptoms better. has hx of inner ear treatments 2/2 to dizziness) Patient usually:: reports: uses a cane, uses a walker Review of Systems - Adult - REVIEW OF SYSTEMS - ADULT ROS:: limited per condition (Limited per pt condition, pt with complaints of pain in right shoulder. Brother at the bedside, states pt was driving 2 days ago. She is not at baseline mental status.) Constitutional: reports: see HPI Past History - Adult - PAST MEDICAL HISTORY-ADULT Review of Records: reports: Old Records Reviewed, Nursing Assessment Review, Medications Reviewed, Social history reviewed & non-contributory. Major Childhood Illnesses: reports: denies history Cardiovascular: reports: hyperlipidemia, other (Histroy of Vent Tachycarida. Stable for years.) Respiratory: reports: COPD (Quit smoking many years ago .) Gastrointestinal: reports: denies history Obstetrical/Gynecological: reports: denies history Genitourinary: reports: denies history Musculoskeletal: reports: arthritis, chronic pain, orthopedic injury Neurological: reports: CVA, stroke deficits, other (Mienier's disease) Psychiatric: reports: anxiety, depression Endocrine/Immune: reports: thyroid disorder Other Conditions: reports: denies history - PRIOR SURGERIES/PROCEDURES Surgical/Procedure History: reports: recent surgery (oral surgery), hysterectomy , tonsillectomy, orthopedic (extremity), other - IMMUNIZATION STATUS Childhood Immunizations: See Nurse Assessment Flu Vaccine: See Nurse Assessment - FAMILY HISTORY Family History: reviewed, not pertinent Physical Exam-General - PHYSICAL EXAM-ADULT Initial Vital Signs Reviewed: Yes - CONSTITUTIONAL General Appearance: no apparent distress, slow to respond - EYES Eyes: PERRL/EOMI - HEAD, EARS, NOSE, MOUTH & THROAT HENMT: other (abraision to right eyebrow, dry mucosal membranes) - RESPIRATORY Respiratory: chest non-tender, lungs clear, normal breath sounds - CARDIOVASCULAR Cardiovascular: no murmur, bradycardia - GASTROINTESTINAL (ABDOMEN) Abdominal Exam: normal bowel sounds, non tender, soft. negative: guarding - MUSCULOSKELETAL Extremity: normal inspection - SKIN Integumentary: normal color - NEUROLOGIC Neurologic: facial droop, other (some right sided weakness and facial drooping, but moves all extremities. pt oriented to person and place. She does not remember a fall occuring on today. She was seen here on 03/17 and remembers the events related to that admission.) Progress - PLAN OF CARE/RESULTS Progress/Plan/Lab Results: Vital Signs - 8 hr 03/22/19 12:30 Temperature 97.6 F Pulse Rate 51 L Respiratory Rate 16 Blood Pressure 156/66 O2 Sat by Pulse Oximetry 95 Laboratory Results - last 24 hr 03/22/19 03/22/19 03/22/19 13:50 14:24 14:24 WBC 11.37 H RBC 4.81 Hgb 12.8 Hct 41.9 MCV 87.1 MCH 26.6 L MCHC 30.5 L RDW Std Deviation 15.9 H Plt Count 226 MPV 9.6 Immature Gran % (Auto) 0.3 Neut % (Auto) 78.8 H Lymph % (Auto) 15.5 L [place] % (Auto) 4.3 Eos % (Auto) 0.9 Baso % (Auto) 0.2 Immature Gran # (Auto) 0.03 Neut # (Auto) 8.97 H Lymph # (Auto) 1.76 [place] # (Auto) 0.49 Eos # (Auto) 0.10 Baso # (Auto) 0.02 PT INR PTT (Actin FS) Sodium 142 Potassium 4.2 Chloride 108 H Carbon Dioxide 23 L Anion Gap 11 BUN 12 Creatinine 0.6 Estimated GFR/1.73 m2 > 60 BUN/Creatinine Ratio 20 Glucose 154 H POC Glucose 129 H Calculated Osmolality 286 Calcium 9.2 Total Bilirubin 0.31 AST 51 H ALT 34 Alkaline Phosphatase 52 Creatine Kinase Troponin T Total Protein 6.2 L Albumin 3.9 Globulin 2.3 Albumin/Globulin Ratio 1.7 Urine Source Urine Color Urine Turbidity Urine pH Ur Specific [place] Urine Protein Ur Glucose (Stick) Ur Ketones (Stick) Urine Blood Urine Nitrite Urine Bilirubin Urobilinogen Dipstick Urine Leukocytes Urine WBC (Auto) Urine RBC (Auto) U Epithel Cells (Auto) Urine Bacteria (Auto) Urine Crystals Small Round Cells Urine Casts Urine Yeast-like Cells Urine Opiates Screen Ur Oxycodone Screen Ur Methadone, Qual Ur Barbiturates Screen Ur Phencyclidine Scrn Ur Amphetamines Screen U Benzodiazepines Scrn Urine Cocaine Screen U Cannabinoids Screen 03/22/19 03/22/19 03/22/19 14:24 14:24 15:30 WBC RBC Hgb Hct MCV MCH MCHC RDW Std Deviation Plt Count MPV Immature Gran % (Auto) Neut % (Auto) Lymph % (Auto) [place] % (Auto) Eos % (Auto) Baso % (Auto) Immature Gran # (Auto) Neut # (Auto) Lymph # (Auto) [place] # (Auto) Eos # (Auto) Baso # (Auto) PT Cancelled INR Cancelled PTT (Actin FS) Cancelled Sodium Potassium Chloride Carbon Dioxide Anion Gap BUN Creatinine Estimated GFR/1.73 m2 BUN/Creatinine Ratio Glucose POC Glucose Calculated Osmolality Calcium Total Bilirubin AST ALT Alkaline Phosphatase Creatine Kinase Troponin T < 0.010 Total Protein Albumin Globulin Albumin/Globulin Ratio Urine Source CATH Urine Color YELLOW Urine Turbidity CLEAR Urine pH 5.0 Ur Specific [place] 1.012 Urine Protein NEGATIVE Ur Glucose (Stick) 300 A Ur Ketones (Stick) NEGATIVE Urine Blood NEGATIVE Urine Nitrite NEGATIVE Urine Bilirubin NEGATIVE Urobilinogen Dipstick NORMAL Urine Leukocytes NEGATIVE Urine WBC (Auto) 20-40 A Urine RBC (Auto) <10 U Epithel Cells (Auto) <10 Urine Bacteria (Auto) NEGATIVE Urine Crystals URIC ACID PRESENT Small Round Cells Not Reportable Urine Casts Not Reportable Urine Yeast-like Cells PRESENT Urine Opiates Screen Ur Oxycodone Screen Ur Methadone, Qual Ur Barbiturates Screen Ur Phencyclidine Scrn Ur Amphetamines Screen U Benzodiazepines Scrn Urine Cocaine Screen U Cannabinoids Screen 03/22/19 03/22/19 03/22/19 15:30 17:14 17:14 WBC RBC Hgb Hct MCV MCH MCHC RDW Std Deviation Plt Count MPV Immature Gran % (Auto) Neut % (Auto) Lymph % (Auto) [place] % (Auto) Eos % (Auto) Baso % (Auto) Immature Gran # (Auto) Neut # (Auto) Lymph # (Auto) [place] # (Auto) Eos # (Auto) Baso # (Auto) PT 13.1 INR 0.98 PTT (Actin FS) 23.0 Sodium Potassium Chloride Carbon Dioxide Anion Gap BUN Creatinine Estimated GFR/1.73 m2 BUN/Creatinine Ratio Glucose POC Glucose Calculated Osmolality Calcium Total Bilirubin AST ALT Alkaline Phosphatase Creatine Kinase 52 Troponin T Total Protein Albumin Globulin Albumin/Globulin Ratio Urine Source Urine Color Urine Turbidity Urine pH Ur Specific [place] Urine Protein Ur Glucose (Stick) Ur Ketones (Stick) Urine Blood Urine Nitrite Urine Bilirubin Urobilinogen Dipstick Urine Leukocytes Urine WBC (Auto) Urine RBC (Auto) U Epithel Cells (Auto) Urine Bacteria (Auto) Urine Crystals Small Round Cells Urine Casts Urine Yeast-like Cells Urine Opiates Screen NONE DETECTED Ur Oxycodone Screen NONE DETECTED Ur Methadone, Qual NONE DETECTED Ur Barbiturates Screen NONE DETECTED Ur Phencyclidine Scrn NONE DETECTED Ur Amphetamines Screen NONE DETECTED U Benzodiazepines Scrn PRESUMPTIVE POSITIVE A Urine Cocaine Screen NONE DETECTED U Cannabinoids Screen NONE DETECTED Orders Category Date Time Status Cardiac Monitoring DIRECTED Care 03/22/19 12:41 Active Finger Stick Blood Sugar (ED) DIRECTED Care 03/22/19 12:41 Completed Misc. NRSG Communication Order DIRECTED Care 03/22/19 12:41 Active Oxygen Therapy- ED Nursing DIRECTED Care 03/22/19 12:41 Active Saline Loc NOW Care 03/22/19 12:41 Active CHEST-PORTABLE [RAD] Stat Exams 03/22/19 12:[address] HEAD W/O CONTRAST [CT] Stat Exams 03/22/19 12:18 Completed CBC WITH ELECTRONIC DIFF [HEME] Stat Lab 03/22/19 14:24 Completed COMPREHENSIVE METABOLIC PANEL [CHEM] Stat Lab 03/22/19 14:24 Completed Cardiac Profile [CK PROFILE] [SP CHEM] Stat Lab 03/22/19 17:14 Completed PROTIME WITH INR [COAG] Stat Lab 03/22/19 17:14 Completed PTT [COAG] Stat Lab 03/22/19 17:14 Completed TROPONIN T Stat Lab 03/22/19 14:24 Completed URINALYSIS W/POSS RFLX CULT [URINALYSIS] Stat Lab 03/22/19 15:30 Completed URINE CULTURE [RM] Routine Lab 03/22/19 16:05 Received URINE DRUG SCREEN Stat Lab 03/22/19 15:30 Completed URINE MANUAL MICROSCOPIC [URINALYSIS] Stat Lab 03/22/19 15:30 Completed 0.9% Sodium Chloride Inj [Ns] 1,000 ml Med 03/22/19 16:00 Active IV 125 mls/hr 0.9% Sodium Chloride Inj [Ns] 1,000 ml Med 03/22/19 12:40 Active IV Per Protocol mls/hr EKG [EKG] Stat Ther 03/22/19 12:41 Draft Result Diagrams: 03/22/19 14:24 03/22/19 14:24 - REASSESSMENT Reassessment #1 Status: unchanged (EXAM: CT HEAD W/O CONTRAST 03/22/2019 HISTORY: AMS TECHNIQUE: This exam was performed using automated exposure control, adjustment of mA or kV according to patient size, and/or use of iterative reconstruction technique. COMMENT: There is mild generalized cerebral atrophy. There is no evidence of mass effect, bleed, or abnormal extra-axial fluid collection. There is a tiny lacune in the left hall radiata region. The appearance the brain has not changed significantly since 03/17/2019. IMPRESSION: Minimal ischemic microvascular change. No evidence of acute disease. Electronically signed by Isac Lynn 03/22/2019 12:47 PM 03/22/19 [id number]) Reassessment #2 Status: unchanged (labs wnl, UA with glucose and WBC, but no esterase, urine culture pending) - EKG 1 Time of EKG reading by physician:: 13:40 EKG Read and Signed by:: Savannah Houston Rate: 51 Rhythm: regular Christmas: normal QRS: normal MO Interval: normal ST Wave: normal - XRAY 1 XRAY Study: Chest Impression: Normal - CONSULTS/PCP/HOSPITALIST Notification #1 *Consult/PCP/Hospitalist*: Dr. Eddy Time Discussed: 18:11 Reason/Comments: AMS, weakness Consult Disposition: Will see in ED (ANANTH Guerin accepts on behalf of Dr. Eddy) Departure - Departure Date of Disposition Decision: 03/22/19 Time of Disposition Decision: 18:11 DIAGNOSIS: Change in mental status, Type 2 diabetes mellitus with hyperglycemia, with long-term current use of insulin, Weakness Disposition: ADMITTED INPATIENT 09 Certified Medical Emergency: Emergent Condition: Stable Referrals and Follow-Ups: Abdoulaye Tomlinson MD [Primary Care Provider] - - Critical Care Note This patient required my direct & personal management of CC.: No Attestation - Physician/ ANGELIA Attestation Patient care was provided by Advanced Practice Provider:: No The physician spent face to face time with patient:: Yes Advanced Practice Provider documentation review:: Supervising physician onsite and consulted in the evaluation and care of this patient. The physician did have a face to face encounter with the patient.
[2019-03-22] MEDS ORDERED: NS 1,000 ML IV PRN (12:40)
--- NOTE | 2019-03-22 12:50 | Diag Imaging Result Doc PS360 ---
EXAM: CT HEAD W/O CONTRAST 03/22/2019 HISTORY: AMS TECHNIQUE: This exam was performed using automated exposure control, adjustment of mA or kV according to patient size, and/or use of iterative reconstruction technique. COMMENT: There is mild generalized cerebral atrophy. There is no evidence of mass effect, bleed, or abnormal extra-axial fluid collection. There is a tiny lacune in the left hall radiata region. The appearance the brain has not changed significantly since 03/17/2019. IMPRESSION: Minimal ischemic microvascular change. No evidence of acute disease. Electronically signed by Isac Lynn 03/22/2019 12:47 PM
--- NOTE | 2019-03-22 13:31 | Diag Imaging Result Doc PS360 ---
EXAM: CHEST-PORTABLE INDICATION: stroke like symptoms TECHNIQUE: One view COMPARISON: 09/08/2018 FINDINGS: The lungs are grossly clear. There is no discrete pleural fluid collection or pneumothorax. The cardiomediastinal silhouette and central vasculature are grossly unremarkable. IMPRESSION: No evidence of acute pathology by plain radiograph. Electronically signed by Bartolo Hayes 03/22/2019 1:29 PM
--- NOTE | 2019-03-22 13:50 | EKG Report ---
Test Performed on : 03/22/2019 1:38:07 PM Test Reason : Stroke like symptoms Blood Pressure : / mmHG Vent. Rate : 052 BPM Atrial Rate : 052 BPM P-R Int : 164 ms QRS Dur : 096 ms QT Int : 456 ms P-R-T Axes : 048 036 023 degrees QTc Int : 424 ms Sinus bradycardia. Otherwise normal ECG When compared with ECG of 17-MAR-2019 20:57, (Unconfirmed) No significant change was found Unconfirmed Result
[2019-03-22 14:50] LABS: BASO# 0.02 X1000 (0.0-0.2); BASO% 0.2 % (0.0-0.8); EOS% 0.9 % (0.0-10.0); HEMATOCRIT 41.9 % (37.0-47.0); HEMOGLOBIN 12.8 g/dL (12.0-16.0); IMM GRAN# 0.03 X1000 (0.0-0.04); IMM GRAN% 0.3 % (0.0-0.5); LYMPH# 1.76 X1000 (1.2-3.4); LYMPH% 15.5 % (20.5-51.1); MCH 26.6 PG (27-31); MCHC 30.5 g/dL (33-37); MCV 87.1 FL (81-99); MONO# 0.49 X1000 (0.11-0.59); MONO% 4.3 % (1.7-9.3); MPV 9.6 FL (7.4-10.4); NEUT# 8.97 X1000 (1.4-6.5); NEUT% 78.8 % (42.2-75.2); PLT 226 X1000 (130-400); RBC 4.81 XMIL (4.2-5.4); RDW 15.9 % (11.5-14.5); WBC 11.37 X1000 (4.8-10.8)
[2019-03-22 15:15] LABS: AGAP 11; ALB/GLOB RATIO 1.7; ALBUMIN 3.9 g/dL (3.5-5.0); ALKALINE PHOSPHATASE 52 U/L (32-104); BUN 12 mg/dL (8-22); CALCIUM 9.2 mg/dL (8.8-10.2); CHLORIDE 108 mmol/L (98-107); COSMO 286; CREATININE 0.6 mg/dL (0.5-0.9); ESTIMATED GFR > 60; GLUCOSE 154 mg/dL (70-104); GOT 51 U/L (10-30); GPT 34 U/L (10-36); POTASSIUM 4.2 mmol/L (3.5-5.1); SODIUM 142 mmol/L (136-145); TCO2 23 mmol/L (25-35); TOTAL BILIRUBIN 0.31 mg/dL (0.20-1.00); TOTAL PROTEIN 6.2 g/dL (6.3-8.3)
[2019-03-22 15:38] LABS: URINE SOURCE CATH
[2019-03-22 15:43] LABS: BILIRUBIN URINE NEGATIVE (NEGATIVE); BLOOD URINE NEGATIVE (NEGATIVE); COLOR YELLOW; GLUCOSE URINE 300 mg/dL (NEGATIVE); KETONE URINE NEGATIVE (NEGATIVE); LEUKOCYTES URINE NEGATIVE (NEGATIVE); NITRITE URINE NEGATIVE (NEGATIVE); PROTEIN URINE NEGATIVE (NEGATIVE); SP GRAVITY URINE 1.012; TURBIDITY URINE CLEAR (CLEAR); UROBILINOGEN URINE NORMAL (NORMAL)
[2019-03-22 15:45] LABS: UR EPITHELIAL CELLS <10 /HPF (<10); URINE BACTERIA NEGATIVE /HPF; URINE RBC <10 /HPF (<10); URINE WBC 20-40 /HPF (<10)
[2019-03-22] MEDS ORDERED: NS 1,000 ML IV SCH (16:00)
[2019-03-22 16:03] LABS: UR AMPHETAMINES QUAL NONE DETECTED (NONE DETECT)
[2019-03-22 16:04] LABS: UR BARBITUATES QUAL NONE DETECTED (NONE DETECT); UR BENZODIAZEPIN QUAL PRESUMPTIVE POSITIVE (NONE DETECT); UR CANNABINOIDS QUAL NONE DETECTED (NONE DETECT); UR COCAINE QUAL NONE DETECTED (NONE DETECT); UR METHADONE QUAL NONE DETECTED (NONE DETECT); UR OPIATES QUAL NONE DETECTED (NONE DETECT); UR OXYCODONE QUAL NONE DETECTED (NONE DETECT); UR PCP QUAL NONE DETECTED (NONE DETECT)
[2019-03-22 16:06] LABS: URINE CRYSTALS URIC ACID PRESENT; URINE YEAST PRESENT
[2019-03-22 17:35] LABS: INR 0.98; PROTIME 13.1 Seconds (11.0-16.0)
--- NOTE | 2019-03-22 19:10 | HISTORY AND PHYSICAL ---
PRIMARY CARE PROVIDER: Dr. Abdoulaye Tomlinson CHIEF COMPLAINT: The patient was unsure. HISTORY OF PRESENT ILLNESS: Ms. Capone is a 73-year-old female who was brought in from assisted living status post fall for an unknown length amount of time. Per ED report, she has new onset altered mental status. She does have a small laceration and bruising with some swelling above her right eye on her brow bone. The last thing she remembers was trying to get up out of bed to use the restroom. She remembers that she could not get up and then she remembers being brought to the hospital. She does not remember if she was dizzy. She did not feel like she had any chest pain, shortness of breath, palpitations, nausea, vomiting, diarrhea, fever, chills. She did have a recent diagnosis of labyrinthitis and has a history of Meniere's. Her most recent admission and discharge was on 03/18 and discharged on 03/19 for dizziness, nausea and vomiting. She does appear to be somewhat dehydrated with dry mucous membranes and dry lips. We will admit her. Her initial workup in the ED with a head CT showed minimal ischemic microvascular change but no evidence of acute disease. She did have a slightly elevated white count of 11. Her urinalysis is negative for bacteria, negative for nitrites. She is positive for benzodiazepines. PAST MEDICAL HISTORY: 1. Meniere's disease. 2. COPD. 3. Hypertension. 4. Dyslipidemia. 5. Type 2 diabetes. 6. Hypothyroidism. 7. General anxiety. 8. Chronic constipation and internal hemorrhoids. PAST SURGICAL HISTORY: 1. Hysterectomy. 2. Ear surgery for Meniere's. 3. Left shoulder surgery. 4. Left knee surgery. 5. Sinus surgery. FAMILY HISTORY: Mother with CVA. Father with an [place]. SOCIAL HISTORY: Per EMR, she is from assisted living. She is a former smoker. No alcohol or illicit drug use. She does have a living brother. Her children are , per her report. ALLERGIES: Multiple hydrocodone, niacin, caffeine, ephedrine, garlic, Reglan, prednisone, promethazine, lactase metacarpal, temazepam and tramadol. HOME MEDICATIONS: 1. Xanax 0.5 mg p.o. b.i.d. 2. Lipitor 40 mg p.o. daily. 3. Lexapro 15 mg p.o. daily. 4. Estradiol 2 mg p.o. daily. 5. Levothyroxine 25 mcg p.o. daily. 6. Centrum Silver 1 each p.o. daily. REVIEW OF SYSTEMS: A 12 point review of systems completely negative except for those mentioned in HPI. PHYSICAL EXAMINATION: VITAL SIGNS: Temperature is 97.6 degrees, heart rate 51, respirations 16, blood pressure 156/66, O2 is 95% on room air. GENERAL: Ms. Capone is a pleasant 73-year-old female who is lying on the stretcher in no acute distress. HEENT: She does have a small laceration on her right brow bone as well as some swelling and purplish bruising normocephalic. PERRL. NECK: Supple, trachea midline. CARDIOVASCULAR: S1, S2 appreciated. No murmurs, gallops, rubs noted. RESPIRATORY: Lung sounds clear bilaterally. GASTROINTESTINAL: Soft, nontender, nondistended. Positive bowel sounds 4 quadrants. GENITOURINARY: Fernandez. NEUROLOGIC: The patient is awake, alert. She is oriented to name, date of and place. She thought the current year with 1998. She does know who the current president is. She did follow all commands. She moved all extremities. LABORATORY DATA: White count 11, hemoglobin and hematocrit 12, 41, platelet count is 226,000. Sodium 142, potassium 4.2, BUN 12, creatinine 0.6 blood glucose is 154, AST was 51. Urinalysis did not show any bacteria, did not show any nitrates. She is positive for benzodiazepines. ASSESSMENT AND PLAN: 1. Altered mental status unsure of secondary to her benzodiazepine use or her recent diagnosis of labyrinthitis. The patient also has a history of Meniere's. She has had recent steroid injections for this. We will hold any sedating medication. Her head CT was negative. We will continue with q.4 hours neuro checks and IV fluids. 2. Clinical dehydration. We will continue with IV hydration. 3. History of Meniere's. Aware. 4. Recent diagnosis and treatment labyrinthitis. 5. Hypertension. 6. Dyslipidemia. 7. Diabetes mellitus type 2. Will continue on sliding scale insulin with pattern blood sugars. 8. Hypothyroidism. Continue Synthroid. 9. General anxiety. 10. Chronic constipation and internal hemorrhoids. 11. Generalized weakness. We will have PT evaluate her as well as consult [facility] for possible rehab placement. 12. Further recommendation to follow physician evaluation, laboratory and diagnostic data. Dictated by DEVAUGHN Watson for Uday Eddy MD cc: Uday Eddy MD I have seen and examined Ms Capone today. No family member at bedside. She still confuse but responsive and follows basic commands. Will move extremities upon command. I have reviewed her labs and imagining studies. Ms Capone will be admitted for AMS due to global encephalopathy. I agree with the above HPI and the plan reflects my opinion discussed with the CROSS TIE CUTTER. KEI
[2019-03-22] MEDS ORDERED: ZOFRAN IV PRN (19:52)
[2019-03-22] MEDS ORDERED: TYLENOL PO PRN (19:52)
[2019-03-22] MEDS: NS 1,000 ML IV SCH (21:18)
[2019-03-22] MEDS: HUMALOG SUBQ SCH (22:21)
[2019-03-23] MEDS: NS 1,000 ML IV SCH ×2 (06:24→15:31)
[2019-03-23] MEDS: SYNTHROID PO SCH (06:24)
[2019-03-23 06:36] LABS: BASO# 0.01 X1000 (0.0-0.2); BASO% 0.1 % (0.0-0.8); EOS# 0.12 X1000 (0.0-0.7); EOS% 1.6 % (0.0-10.0); HEMATOCRIT 34.3 % (37.0-47.0); HEMOGLOBIN 10.5 g/dL (12.0-16.0); IMM GRAN# 0.02 X1000 (0.0-0.04); IMM GRAN% 0.3 % (0.0-0.5); LYMPH# 1.28 X1000 (1.2-3.4); LYMPH% 17.2 % (20.5-51.1); MCH 26.6 PG (27-31); MCHC 30.6 g/dL (33-37); MCV 86.8 FL (81-99); MONO# 0.41 X1000 (0.11-0.59); MONO% 5.5 % (1.7-9.3); NEUT% 75.3 % (42.2-75.2); PLT 222 X1000 (130-400); RBC 3.95 XMIL (4.2-5.4); RDW 15.6 % (11.5-14.5); WBC 7.44 X1000 (4.8-10.8)
[2019-03-23 06:38] LABS: AGAP 10; ALB/GLOB RATIO 1.6; ALBUMIN 3.4 g/dL (3.5-5.0); ALKALINE PHOSPHATASE 51 U/L (32-104); BUN 11 mg/dL (8-22); CALCIUM 8.4 mg/dL (8.8-10.2); CHLORIDE 108 mmol/L (98-107); COSMO 287; CREATININE 0.8 mg/dL (0.5-0.9); ESTIMATED GFR > 60; GLUCOSE 174 mg/dL (70-104); GOT 49 U/L (10-30); GPT 30 U/L (10-36); MAGNESIUM 1.6 mg/dL (1.5-2.7); POTASSIUM 3.9 mmol/L (3.5-5.1); SODIUM 142 mmol/L (136-145); TCO2 24 mmol/L (25-35); TOTAL BILIRUBIN 0.26 mg/dL (0.20-1.00); TOTAL PROTEIN 5.5 g/dL (6.3-8.3)
[2019-03-23] MEDS: HUMALOG SUBQ SCH ×4 (06:40→21:07)
--- NOTE | 2019-03-23 07:23 | EKG Report ---
Test Performed on : 03/23/2019 07:13:53 AM Test Reason : bradycardia Blood Pressure : / mmHG Vent. Rate : 064 BPM Atrial Rate : 064 BPM P-R Int : 152 ms QRS Dur : 094 ms QT Int : 424 ms P-R-T Axes : 055 048 022 degrees QTc Int : 437 ms Normal sinus rhythm. Normal ECG When compared with ECG of 22-MAR-2019 13:38, (Unconfirmed) No significant change was found Confirmed by Gretel Cason MD ([id number]) on 03/23/2019 12:25:54 PM
[2019-03-23] MEDS: CENTRUM SILVER PO SCH (08:13)
[2019-03-23] MEDS: CLARITIN PO SCH (08:13)
[2019-03-23] MEDS: ESTRACE PO SCH (13:34)
--- NOTE | 2019-03-23 14:44 | PROGRESS NOTE ---
DATE: 03/23/2019 SUBJECTIVE: This morning Ms. Capone refers to be doing a whole lot better. There is a brother who was at the bedside at the time of the encounter. OBJECTIVE: Vital signs: Blood pressure is 173/70, pulse of 71, respiration is 20, temperature 98.2 degrees. General: Ms. Capone is a 73-year-old female. She is in bed. She is not in any distress. HEENT: Mucosa is pink, slightly dry. Anicteric. Acyanotic. Neck: Supple. Chest: Clear to auscultation. Cardiovascular: Regular rate and rhythm. Abdomen: Soft. Extremities: No pedal edema. Central Nervous System: Patient is awake, alert. Shows some cognitive deficits, but for the most part she is conversational. LABORATORY DATA: CBC shows normocytic anemia. Chemistry is completely normal. Magnesium is about 1.6. TSH is minimally elevated. Toxicology positive for benzodiazepines. CURRENT MEDICATIONS: Have all been reviewed. ASSESSMENT: 1. Altered mental status on presentation secondary to global encephalopathy of unclear etiology, presumably from medication-induced versus metabolic causes. For now, Ms. Capone's mentation is progressively getting better. I suspect she also has some underlying dementia. Ms. Capone is on benzodiazepines and SSRIs at home ,which could have potentially precipitated her acute altered mentation status. 2. Clinical volume depletion, improving. We will continue with gentle hydration. 3. Diabetes mellitus, type 2, controlled. 4. History of Mnire disease. 5. Recently diagnosed and recently treated labyrinthitis, improved. 6. Hypothyroidism. We will continue with Synthroid. 7. Generalized weakness. We will get Physical Therapy to evaluate the patient. cc: Uday Eddy MD
[2019-03-23] MEDS: ANTIVERT PO PRN (20:06)
[2019-03-23] MEDS: LEXAPRO PO SCH (20:06)
[2019-03-24] MEDS: NS 1,000 ML IV SCH ×3 (04:03→16:16)
[2019-03-24] MEDS: HUMALOG SUBQ SCH ×3 (06:13→21:24)
[2019-03-24] MEDS: SYNTHROID PO SCH (06:14)
[2019-03-24] MEDS: CENTRUM SILVER PO SCH (09:09)
[2019-03-24] MEDS: CLARITIN PO SCH (09:09)
[2019-03-24] MEDS: ESTRACE PO SCH (12:33)
--- NOTE | 2019-03-24 14:15 | PROGRESS NOTE ---
DATE: 03/24/2019 SUBJECTIVE: This morning Ms. Capone refers to be doing okay. She did not really want to talk a whole lot. She was sleeping and she says she just wanted to rest. The nursing staff from yesterday had made observation that Ms. Capone was [id number] risk with suicidal ideations. However, this morning she denies any suicidal ideations. OBJECTIVE: Vital Signs: Blood pressure is 146/79, pulse of 59, respiration is 18, temperature 97.7 degrees. Patient was saturating 98% on room air. General: Ms. Capone is a 73-year-old is female. She was in bed. No distress. HEENT: Mucosa is pink and moist. Anicteric. Acyanotic. Neck: Supple. Chest: Good air entry bilaterally. No crepitations. No rhonchi. Cardiovascular: Regular rate and rhythm. Abdomen: Soft, distended, but nontender. Bowel sounds present. Extremities: No pedal edema. A[employer] FARM MANAGER: Patient is sleeping but easily arousable. She will follow basic commands and have a rational conversation. LABORATORY DATA: Glucose is 204. CURRENT MEDICATIONS: Have all been reviewed. ASSESSMENT: 1. Altered mental status on presentation secondary to global encephalopathy, presumably medication induced, resolved. 2. Clinical volume depletion, improved. 3. Diabetes mellitus type 2, controlled. 4. Hypothyroidism. Will continue with Synthroid. 5. Generalized weakness. Physical therapy is on board. 6. Occasional suicidal ideations. We have consulted [facility] to evaluate Ms. Capone. 7. Depression. Patient is on Lexapro. DISPOSITION: Pending approval for rehab placement. cc: Uday Eddy MD
[2019-03-24] MEDS: ANTIVERT PO PRN ×2 (16:15→21:24)
[2019-03-24] MEDS: LEXAPRO PO SCH (21:24)
[2019-03-25] MEDS: HUMALOG SUBQ SCH ×2 (06:09→11:52)
[2019-03-25] MEDS: SYNTHROID PO SCH (06:19)
[2019-03-25] MEDS: CENTRUM SILVER PO SCH (09:27)
[2019-03-25] MEDS: CLARITIN PO SCH (09:27)
[2019-03-25] MEDS: NS 1,000 ML IV SCH (11:50)
--- NOTE | 2019-03-25 11:54 | DISCHARGE SUMMARY ---
ADMISSION DATE: 03/22/2019 DISCHARGE DATE: 03/25/2019 DISPOSITION: [facility]. FOLLOW UP: Dr. Abdoulaye Tomlinson. CONSULTATION DURING THIS ADMISSION: None. IMAGING STUDIES OF SIGNIFICANCE: A CT scan of the head showed minimal ischemic microvascular changes. No evidence of acute disease. A chest x-ray showed no evidence of acute pathology. ADMISSION DIAGNOSES: 1. Altered mental status. 2. Clinical volume depletion. 3. History of Mnire's 4. Diabetes mellitus. Hypothyroid. DIAGNOSES AT THE TIME OF DISCHARGE: 1. Altered mental status on presentation secondary to global encephalopathy, presumably medication-induced (benzodiazepines). 2. Clinical volume depletion, improved. 3. Diabetes mellitus, controlled. The patient has been started on metformin for outpatient management. 4. Hypothyroidism. Continue with Synthroid. 5. Generalized weakness. Physical Therapy was consulted. 6. Depression. The patient is on Lexapro and was advised to follow up with outpatient psychiatric evaluation. DISCHARGE MEDICATIONS: 1. Atorvastatin 40 mg p.o. daily. 2. Escitalopram 15 mg p.o. daily. 3. Estradiol. 4. Levothyroxine 25 mg mcg p.o. daily. 5. Metformin 500 b.i.d. PRESENTING COMPLAINT: The patient was not sure/altered mental status. HISTORY OF PRESENTING COMPLAINT: Ms. Capone is a 73-year-old female, who was recently diagnosed with acute labyrinthitis. She also has a history of Mnire's disease. She was discharged recently for dizziness and nauseation, and was sent home. Seems to have been doing fairly okay until the day of admission. She says she just forgot where she was and was acting weird. The patient was brought from her independent living facility for further medical evaluation. An initial CT scan of the brain was done, which was negative. The patient was found to be volume depleted. She was admitted. Urine toxicology was only positive for benzodiazepines. The patient was on alprazolam. She was admitted for further medical care. HOSPITAL COURSE: Mr. Capone was admitted to the medical floor, was adequately fluid resuscitated. Sedatives were all withheld. Throughout the hospital course her mentation continued to improve. We were able to talk with the brother who, at one point, suggested that Ms. Capone has tried suicidal attempts twice in the past, so the nurses on the floor did screening tests on her and she did have mild to moderate depression. She was already on Lexapro, we uptitrated the dose. We also checked on her thyroid function test, which was fairly within normal range, minimally on the upper end of normal, so we plan to continue with the current dose of her levothyroxine and will also advise that she follow up with mental health on an outpatient basis. This morning, Ms. Capone refers to be doing okay. Denies any new complaints. Her vitals show blood pressure is 187/68, pulse of 53, respirations 24, temperature 97.8 degrees. She is saturating 95% on room air. Her physical exam is completely benign. In terms of her [employer], she is alert, she is oriented. She is very conversational and very cooperative. DISPOSITION: She is being discharged in stable condition. As I said, her alprazolam has been withheld since admission. All the discharge instructions have been discussed with her and she voiced understanding. Discharge time 45 minutes cc: MD Abdoulaye Villanueva MD MTDD
[2019-03-25 12:23] VITALS: BP 163/86
== END 2019-03-25 13:44 | DRG 93 ==
LOC: SUPCPDRO → ED 12:13 → EDIPHOLD 19:35 → 3N 20:27
PROVIDERS: ATTEND Internal Medicine